=== PATIENT | male | born 1955 | race Two or more races ===

== ENCOUNTER 2016-10-23 20:29 | Inpatient (IN) | payer MEDICARE, OTHER ==
[~2016-10-23] VITALS: Ht 175.3 cm; Wt 68.5 kg
[~2016-10-23 20:29] MED LIST: Bisacodyl RC; CARB1TAB21 PO; DONE10TA44 PO; FLUD0.1T PO; HYDR-3326 PO; MEMA10TA PO; RIVA10TA PO; Sennosides PO
--- NOTE | 2016-10-23 20:32 | NUR ---
PT BIBRA FROM HOME TO ER BED 09. PER REPORT, PT INCREASING WEAKNESS X 3 DAYS. ALSO NOTED TO BE MORE LETHARGIC, GOWNED AND PLACED ON MONITOR. STABLE VITALS. FEVER CONTRACTS MANAGER. PER FAMILY, PT USUALLY CAN AMBULATE. AWAITING MD EDWARDS.
--- NOTE | 2016-10-23 20:48 | NUR ---
DR RAWLS AT BEDSIDE FOR EVAL.
--- NOTE | 2016-10-23 20:57 | NUR ---
TIRE WORKER AT BEDSIDE FOR BLOOD DRAW.
--- NOTE | 2016-10-23 21:07 | NUR ---
RADIOLOGY AT BEDSIDE FOR CHEST XRAY.
[2016-10-23 21:08] LABS: BASOPHILS # (AUTO) 0.1 /CMM (0.0-0.2); BASOPHILS % (AUTO) 1.1 % (0.0-2.0); EOSINOPHILS # (AUTO) 0.2 /CMM (0.0-0.7); EOSINOPHILS % (AUTO) 2.1 % (0.0-6.0); HEMATOCRIT 45 % (39-51); HEMOGLOBIN 14.3 g/dL (13.5-17.5); LYMPHOCYTES # (AUTO) 0.4 /CMM (0.8-4.8); LYMPHOCYTES % (AUTO) 5.8 % (20.0-44.0); MEAN CORPUSCULAR HEMOGLOBIN 29 PG (26.0-33.0); MEAN CORPUSCULAR HGB CONC 32 g/dl (31.0-36.0); MEAN CORPUSCULAR VOLUME 89 fL (80-96); MONOCYTES # (AUTO) 0.3 /CMM (0.1-1.30); MONOCYTES % (AUTO) 3.8 % (2.0-12.0); NEUTROPHILS # (AUTO) 6.7 /CMM (1.8-8.9); NEUTROPHILS % (AUTO) 87.2 % (43.0-81.0); PLATELET COUNT (AUTO) 193 /CMM (150-450); RDW COEFFICIENT OF VARIATION 14.1 (11.5-15.0); RED BLOOD CELL COUNT(AUTO) 5.02 MIL/uL (4.5-6.0); WHITE BLOOD COUNT (AUTO) 7.7 K/uL (4.3-11.0)
--- NOTE | 2016-10-23 21:15 | NUR ---
PT TO RADIOLOGY FOR HEAD CT SCAN VIA [facility].
[2016-10-23 21:16] LABS: CALCIUM, SERUM 8.8 mg/dL (8.5-10.1); CARBON DIOXIDE 28 mmol/L (21-32); CHLORIDE 105 mmol/L (98-107); GFR 76 mL/min (>60); GLUCOSE 170 mg/dL (74-106); POTASSIUM 3.5 mmol/L (3.5-5.1); SODIUM SERUM 139 mmol/L (136-145); UREA NITROGEN, BLOOD 17 mg/dL (7-18)
[2016-10-23 21:17] LABS: SERUM AMMONIA 26 umol/L (11-32)
[2016-10-23 21:21] LABS: ALANINE AMINOTRANSFERASE 9 U/L (12-78); ALBUMIN 3.3 g/dL (3.4-5.0); ALKALINE PHOSPHATASE 83 U/L (46-116); ASPARTATE AMINOTRANSFERASE 11 U/L (15-37); BILIRUBIN,DIRECT 0.1 mg/dL (0.0-0.2); BILIRUBIN,TOTAL 0.6 mg/dL (0.2-1.0)
[2016-10-23 21:23] LABS: TROPONIN I < 0.017 ng/mL (0.00-0.056)
[2016-10-23 21:24] LABS: INR 1.02 (0.87-1.13); PROTHROMBIN TIME 10.6 SECS (9.5-12.7)
[2016-10-23 21:30] LABS: APPEARANCE,URINE Clear (CLEAR); BILIRUBIN,URINE Negative (NEGATIVE); BLOOD, URINE Small Ery/uL (NEGATIVE); COLOR,URINE Yellow (YELLOW); KETONES,URINE Trace (NEGATIVE); LEUKOCYTE ESTERASE ,URINE Negative (NEGATIVE); NITRITE, URINE Negative (NEGATIVE); PH,URINE 6.5 (5.0-8.0); PROTEIN,URINE 30 mg/dl (NEGATIVE); UGLUCOSE Negative (NEGATIVE); UROBILINOGEN,URINE 0.2 EU/dL (0.2)
[2016-10-23] MEDS ORDERED: IV NS 0.9% 1,000 ML BAG IV ONE (21:30)
[2016-10-23] MEDS ORDERED: IV SET PRIMARY 1 EA INFUS.SET MC ONE (21:30)
[2016-10-23] MEDS ORDERED: IV NS 0.9% 1,000 ML ONE (21:30)
[2016-10-23] MEDS ORDERED: ACETAMINOPHEN ES 500 MG TABLET PO ONE (21:30)
[2016-10-23] MEDS ORDERED: ACETAMINOPHEN ES 500 MG TABLET ONE (21:30)
[2016-10-23 21:58] LABS: ADD URINE CULTURE NO; BACTERIA,URINE Rare /HPF (None Seen); SQUAMOUS EPITHELIAL CELL,UR Few /HPF (None Seen); URINE AMORPHOUS URATE Few /HPF (None Seen); WBC,URINE 0-2 /HPF (0-3)
--- NOTE | 2016-10-23 22:32 | NUR ---
RN NOTE RECEIVED REPORT FROM [facility] FOR CONTINUITY OF CARE. AWAITING PT ARRIVAL TO UNIT.
--- NOTE | 2016-10-23 22:32 | NUR ---
REPORT GIVEN TO YEIMY. PT AWAITING TRANSFER TO FLOOR.
[2016-10-23 22:50] VITALS: BP 133/75
--- NOTE | 2016-10-23 22:50 | NUR ---
RN INITIAL NOTE RECEIVED PT IN NO ACUTE DISTRESS IN BED. PT IS A/O X 1 AND IS ARMEANIAN SPEAKING. PT HAS AT BEDSIDE TO INTERPRET. PT IS ON RA AND TOLERATING WELL WITH O2 SAT @ 100%. PT IS NOT C/O ANY SOB, DIFFICULTY BREATHING OR PAIN AT THIS TIME. PT HAS LFA 18G THAT IS CLEAN DRY AND INTACT AND PATENT WITH SALINE LOCK. BED IN LOW LOCK POSITION WITH RIALS UP X 2. CALL LIGHT WITHIN REACH AND ALL SAFETY MEASURES ENSURED AND CARRIED OUT. WILL CONTINUE TO MONITOR PT.
[2016-10-24] VITALS: BP 138/79
[2016-10-24] MEDS ORDERED: MAGNESIUM HYDROXIDE 30 ML UDC PO PRN
[2016-10-24] MEDS ORDERED: BISACODYL SUPP (10 MG) 10 MG/SUPP.RECT SUPP.RECT RC PRN
[2016-10-24] MEDS ORDERED: ZOLPIDEM TARTRATE 5 MG TABLET PO PRN
[2016-10-24] MEDS ORDERED: Z GUARD REMEDY 2 OZ OINT TP PRN
[2016-10-24] MEDS ORDERED: MAG HYDROX/AL HYDROX/SIMETH 30 ML UDC PO PRN
[2016-10-24] MEDS ORDERED: ENOXAPARIN SODIUM 30 MG/0.3 ML DISP.SYRIN SQ SCH
[2016-10-24] MEDS ORDERED: SENNOSIDES 8.6 MG TABLET PO PRN
[2016-10-24] MEDS ORDERED: HYDROCODONE/APAP 5/325MG 1 EACH TABLET PO PRN ×2
[2016-10-24] MEDS ORDERED: ONDANSETRON HCL/PF 4 MG/2 ML VIAL IVP PRN
--- NOTE | 2016-10-24 | NUR ---
RN NOTE PT FAMILY REFUSED DVT PUMPS. TRIED TO EDUCATE FAMILY MEMBER, BUT STILL REFUSED. WILL NEED FURTHER TEACHING.
[2016-10-24] MEDS ORDERED: IV NS 0.9% 1,000 ML ONE (03:27)
[2016-10-24] MEDS ORDERED: IV SET PRIMARY PUMP SET 1 EA INFUS.SET MC ONE (03:27)
[2016-10-24] MEDS: IV NS 0.9% 1,000 ML IV PRN (03:44)
[2016-10-24 04:00] VITALS: BP_SYST 126; BP_SYST 138; BP_DIAS 77; BP_DIAS 79
--- NOTE | 2016-10-24 07:02 | NUR ---
RN CLOSING NOTE PT REMAINS IN NO ACUTE DISTRESS IN BED. PT DID NOT HAVE ANY SIGNIFICANT CHANGE IN CONDITION DURING SHIFT. WILL ENDORSE TO AM RN FOR CONTINUITY OF CARE.
[2016-10-24 07:13] LABS: BASOPHILS % (AUTO) 0.3 % (0.0-2.0); EOSINOPHILS # (AUTO) 0.2 /CMM (0.0-0.7); EOSINOPHILS % (AUTO) 2.2 % (0.0-6.0); HEMATOCRIT 42 % (39-51); HEMOGLOBIN 13.9 g/dL (13.5-17.5); LYMPHOCYTES # (AUTO) 0.9 /CMM (0.8-4.8); LYMPHOCYTES % (AUTO) 10.9 % (20.0-44.0); MEAN CORPUSCULAR HEMOGLOBIN 30 PG (26.0-33.0); MEAN CORPUSCULAR HGB CONC 33 g/dl (31.0-36.0); MEAN CORPUSCULAR VOLUME 90 fL (80-96); MONOCYTES # (AUTO) 0.4 /CMM (0.1-1.30); MONOCYTES % (AUTO) 4.5 % (2.0-12.0); NEUTROPHILS # (AUTO) 6.5 /CMM (1.8-8.9); NEUTROPHILS % (AUTO) 82.1 % (43.0-81.0); PLATELET COUNT (AUTO) 171 /CMM (150-450); RDW COEFFICIENT OF VARIATION 14.9 (11.5-15.0); WHITE BLOOD COUNT (AUTO) 7.9 K/uL (4.3-11.0)
--- NOTE | 2016-10-24 07:15 | NUR ---
NEON SIGN WORKER INITIAL NOTES RECEIVED REPORT AND PT FROM PM NURSE, PT RESTING IN BED, NO ACUTE DISTRESS OR SOB AT THIS TIME, ON RA SAT ABOVE 97%, A&O X1 CONFUSED, ON TELE MON SR 81, LT FA 18 G IV RUNNING NS @ 75 ML/HR, NO INFILTRATION NOTED, ALL NEEDS MET, ALL SAFETY MEASURES INITIATED, SIDE RAILS X2, BED LOW AND LOCKED,CALL LIGHT WITHIN REACH, WILL CONTINUE TO MONITOR.
[2016-10-24] MEDS: PANTOPRAZOLE 40 MG TABLET.DR PO SCH (07:30)
[2016-10-24 07:34] LABS: CALCIUM, SERUM 8.5 mg/dL (8.5-10.1); CREATININE 0.9 mg/dL (0.6-1.3); MAGNESIUM 1.7 mg/dL (1.8-2.4); PHOSPHORUS 2.6 mg/dL (2.5-4.9); POTASSIUM 4.5 mmol/L (3.5-5.1)
[2016-10-24 08:00] VITALS: BP 147/98
[2016-10-24] MEDS: ENOXAPARIN SODIUM 40 MG/0.4 ML DISP.SYRIN SQ SCH (09:00)
[2016-10-24] MEDS ORDERED: MEMANTINE HCL 5 MG TABLET PO SCH (09:00)
[2016-10-24] MEDS: CARBIDOPA/LEVODOPA 25/100 MG 1 UDTAB PO SCH ×4 (09:57→21:31)
[2016-10-24] MEDS: ESCITALOPRAM OXALATE (10 MG) 10 MG TABLET PO SCH (09:58)
[2016-10-24] MEDS: FLUDROCORTISONE 0.1 MG TABLET PO SCH (09:58)
[2016-10-24] MEDS: MEMANTINE HCL 5 MG TABLET PO SCH ×2 (09:58→16:06)
[2016-10-24] MEDS: ACETAMINOPHEN 325 MG TABLET PO PRN ×3 (10:04→21:30)
[2016-10-24 12:00] VITALS: BP 107/71
[2016-10-24] MEDS ORDERED: SECONDARY IV SET 1 EA INFUS.SET MC ONE (12:15)
[2016-10-24] MEDS: Magnesium 1GM/D5W 100ML PREMIX 100 ML IV SCH ×2 (12:25→13:29)
--- NOTE | 2016-10-24 13:04 | NUR ---
FIRE EQUIPMENT INSPECTOR HELPER NOTES PT ON RA SAT AT 90%, PLACED ON 4L NC SAT AT 95%
--- NOTE | 2016-10-24 15:00 | NUR ---
RN MS NOTES PTS FAMILY STATES PT IS VERY SLEEPY AND HARD TO WAKE, SPOKE WITH DR TORRES AND STATED PT URI AND WILL CONTINUE TO MONITOR IF STILL NO CHANGES TOMORROW THEN WILL PUT NEW ORDERS,PTS FAMILY AWARE, VS STABLE.
[2016-10-24 16:00] VITALS: BP 122/69
[2016-10-24] MEDS ORDERED: RIVAROXABAN 10 MG TABLET PO SCH (17:00)
--- NOTE | 2016-10-24 18:53 | NUR ---
RN MS ENDING NOTES PT STABLE, ALL DUE MEDS GIVEN, ALL NEEDS MET, WILL ENDORSE TO PM NURSE.
[2016-10-24 20:00] VITALS: BP 144/77
[2016-10-24] MEDS: DONEPEZIL 5 MG TABLET PO SCH (21:30)
[2016-10-24] MEDS: TAMSULOSIN 0.4 MG CAP.SR.24H PO SCH (21:31)
[2016-10-25 04:00] VITALS: BP 105/69
--- NOTE | 2016-10-25 04:00 | NUR ---
RN NOTE PT HAS TEMP OF 101.2 AND COOLING MEASURES INITIATED. TYLENOL GIVEN. WILL REASSESS.
--- NOTE | 2016-10-25 04:30 | NUR ---
RN NOTE REASSESSED TEMP. TEMP IS 102.7 PER ORAL. CONTACTED AVTAR HYDROMETER CALIBRATOR AND NO NEW ORDERS. CONTINUE WITH COOLING MEASURES AND REASSESS IN 2-3 HOURS.
[2016-10-25] MEDS: ACETAMINOPHEN 325 MG TABLET PO PRN ×3 (05:02→22:06)
--- NOTE | 2016-10-25 06:30 | NUR ---
RN NOTE RETOOK TEMP. TEMP IS 99.1.
--- NOTE | 2016-10-25 06:40 | NUR ---
RN CLOSING NOTE PT REMAINS IN NO ACUTE DISTRESS IN BED. PT DID NOT HAVE ANY SIGNIFICANT CHANGE IN CONDITION DURING SHIFT. PT TEMP INCREASED TO 102.7. COOLING MEASURES INITIATED AND TEMP DECREASED TO 99.1. WILL ENDORSE TO AM RN FOR CONTINUITY OF CARE.
[2016-10-25 07:11] LABS: CREATININE 0.9 mg/dL (0.6-1.3); MAGNESIUM 1.8 mg/dL (1.8-2.4); POTASSIUM 3.9 mmol/L (3.5-5.1)
[2016-10-25 07:15] LABS: BASOPHILS % (AUTO) 0.3 % (0.0-2.0); EOSINOPHILS # (AUTO) 0.1 /CMM (0.0-0.7); EOSINOPHILS % (AUTO) 1.9 % (0.0-6.0); HEMATOCRIT 40 % (39-51); HEMOGLOBIN 13.1 g/dL (13.5-17.5); LYMPHOCYTES # (AUTO) 0.7 /CMM (0.8-4.8); LYMPHOCYTES % (AUTO) 10.9 % (20.0-44.0); MEAN CORPUSCULAR HEMOGLOBIN 29 PG (26.0-33.0); MEAN CORPUSCULAR HGB CONC 33 g/dl (31.0-36.0); MEAN CORPUSCULAR VOLUME 89 fL (80-96); MONOCYTES # (AUTO) 0.2 /CMM (0.1-1.30); MONOCYTES % (AUTO) 3.2 % (2.0-12.0); NEUTROPHILS # (AUTO) 5.2 /CMM (1.8-8.9); NEUTROPHILS % (AUTO) 83.7 % (43.0-81.0); PLATELET COUNT (AUTO) 140 /CMM (150-450); RDW COEFFICIENT OF VARIATION 14.8 (11.5-15.0); RED BLOOD CELL COUNT(AUTO) 4.48 MIL/uL (4.5-6.0); WHITE BLOOD COUNT (AUTO) 6.2 K/uL (4.3-11.0)
--- NOTE | 2016-10-25 07:30 | NUR ---
initial note patient resting in bed. oriented to name only. breathing wnl on room air. at bedside. lfa iv patent with iv fluids infusing. temp 98.7 at this time. discussed plan of care. call light in reach.
[2016-10-25 08:00] VITALS: BP 103/58
[2016-10-25] MEDS: PANTOPRAZOLE 40 MG TABLET.DR PO SCH (08:13)
[2016-10-25] MEDS: MEMANTINE HCL 5 MG TABLET PO SCH ×2 (08:14→15:53)
[2016-10-25] MEDS: FLUDROCORTISONE 0.1 MG TABLET PO SCH (08:14)
[2016-10-25] MEDS: ESCITALOPRAM OXALATE (10 MG) 10 MG TABLET PO SCH (08:14)
[2016-10-25] MEDS: ENOXAPARIN SODIUM 40 MG/0.4 ML DISP.SYRIN SQ SCH (08:17)
[2016-10-25] MEDS: CARBIDOPA/LEVODOPA 25/100 MG 1 UDTAB PO SCH ×3 (08:17→22:04)
[2016-10-25] MEDS: IV NS 0.9% 1,000 ML IV PRN (10:37)
[2016-10-25 12:00] VITALS: BP 115/60
[2016-10-25 16:00] VITALS: BP 125/67
--- NOTE | 2016-10-25 16:30 | NUR ---
DR. TORRES AND DR. NIEVES AWARE OF TEMPERATURE 101.0 UNRELIEVED BY TYLENOL AND COOLING MEASURES.
[2016-10-25] MEDS ORDERED: SECONDARY IV SET 1 EA INFUS.SET MC ONE (19:36)
[2016-10-25] MEDS: CEFTRIAXONE 1 G in IV D5W 50 ML IV SCH (19:42)
[2016-10-25 20:00] VITALS: BP 124/69
--- NOTE | 2016-10-25 20:00 | NUR ---
RN INITIAL NOTE; PT ON THE BED RESTING WITHOUT ANY DISTRESS , FAMILY AT THE BED SITE. A/O X 1 , CONFUSE. BREATHING EVEN AND UNLABORED ON 4 LPM VIA NC , PERIPHERAL IV ON LFA 18 G INTACT AND PATENT WITH CONTINUE NS @ 75 ML/HR. DENIED ANY PAIN AT THIS TIME . INCONTINENT TO BOWEL/BLADDER, BED IN THE LOWEST/LOCKED POSITION , SAFETY MEASURES APPLIED . WILL CONTINUE OT MONITOR .
[2016-10-25] MEDS: AZITHROMYCIN 500 MG in IV D5W 250 ML IV SCH (20:31)
[2016-10-25] MEDS: DONEPEZIL 5 MG TABLET PO SCH (22:04)
[2016-10-25] MEDS: TAMSULOSIN 0.4 MG CAP.SR.24H PO SCH (22:04)
[2016-10-26 04:00] VITALS: BP 131/70
[2016-10-26] MEDS: IV NS 0.9% 1,000 ML IV PRN ×2 (04:05→17:49)
[2016-10-26 06:51] LABS: BASOPHILS % (AUTO) 0.6 % (0.0-2.0); EOSINOPHILS # (AUTO) 0.2 /CMM (0.0-0.7); EOSINOPHILS % (AUTO) 3.2 % (0.0-6.0); HEMATOCRIT 41 % (39-51); HEMOGLOBIN 13.2 g/dL (13.5-17.5); LYMPHOCYTES # (AUTO) 0.9 /CMM (0.8-4.8); LYMPHOCYTES % (AUTO) 15.9 % (20.0-44.0); MEAN CORPUSCULAR HEMOGLOBIN 29 PG (26.0-33.0); MEAN CORPUSCULAR HGB CONC 33 g/dl (31.0-36.0); MEAN CORPUSCULAR VOLUME 89 fL (80-96); MONOCYTES # (AUTO) 0.2 /CMM (0.1-1.30); MONOCYTES % (AUTO) 4.3 % (2.0-12.0); NEUTROPHILS # (AUTO) 4.2 /CMM (1.8-8.9); PLATELET COUNT (AUTO) 147 /CMM (150-450); RDW COEFFICIENT OF VARIATION 15.1 (11.5-15.0); RED BLOOD CELL COUNT(AUTO) 4.55 MIL/uL (4.5-6.0); WHITE BLOOD COUNT (AUTO) 5.5 K/uL (4.3-11.0)
--- NOTE | 2016-10-26 07:00 | NUR ---
RN NOTE; RECEIVED PT ON BED, A/Ox1 ,INDONESIAN SPEAKING ,RESPITTION EVEN AND UNLABORED, NO SOB NOTED, ON O2 4-5L N/C , SUPPORTIVE FAMILY AT THE BEDSIDE, IV ON LFA 18 G INTACT AND PATENT WITH CONTINUE NS @ 75 ML/HR. INCONTINENT TO BOWEL/BLADDER, BED IN THE LOWEST AND LOCKED POSITION , SAFETY MEASURES APPLIED . WILL CONTINUE OT MONITOR PT CLSOELY AND NOTIFY MD FOR ANY SIGNIFICANT CHANGES
--- NOTE | 2016-10-26 07:05 | NUR ---
RN EOS NOTE; PT REMAINED STABLE DURING THE SHIFT, NO ANY DISTRESS NOTED. IV SITE , HD CATH INTACT . KEPT CLEAN AND DRY .ALL NEEDS ATTENDED PROMPTLY. CALL LIGHT WITHIN REACH. ENDORSED TO NEXT SHIFT RN FOR CONTINUITY OF CARE. Addendum: 10/26/16 at 0707 by AILYN KENT RN WRONG PT DOCUMENTATION
--- NOTE | 2016-10-26 07:07 | NUR ---
RN EOS NOTE; PT REMAINED STABLE DURING THE SHIFT, NO ANY DISTRESS NOTED. IV SITE INTACT AND PATENT. IV ATB TOLERATED WELL . KEPT CLEAN AND DRY .ALL NEEDS ATTENDED PROMPTLY. CALL LIGHT WITHIN REACH. ENDORSED TO NEXT SHIFT RN FOR CONTINUITY OF CARE.
[2016-10-26 07:24] LABS: CALCIUM, SERUM 8.2 mg/dL (8.5-10.1); CREATININE 0.8 mg/dL (0.6-1.3); POTASSIUM 3.6 mmol/L (3.5-5.1)
[2016-10-26 08:00] VITALS: BP 144/81
[2016-10-26] MEDS: DOCUSATE SODIUM 100 MG CAPSULE PO SCH ×2 (08:30→16:19)
[2016-10-26] MEDS: PANTOPRAZOLE 40 MG TABLET.DR PO SCH (08:31)
[2016-10-26] MEDS: MEMANTINE HCL 5 MG TABLET PO SCH ×2 (08:32→16:20)
[2016-10-26] MEDS: FLUDROCORTISONE 0.1 MG TABLET PO SCH (08:32)
[2016-10-26] MEDS: ENOXAPARIN SODIUM 40 MG/0.4 ML DISP.SYRIN SQ SCH (08:32)
[2016-10-26] MEDS: ESCITALOPRAM OXALATE (10 MG) 10 MG TABLET PO SCH (08:34)
[2016-10-26] MEDS: CARBIDOPA/LEVODOPA 25/100 MG 1 UDTAB PO SCH ×3 (10:22→21:21)
--- NOTE | 2016-10-26 15:10 | NUR ---
RN NOTES PT IS MORE ALERT AT THIS TIME, PT'S WANTS PT CONSULT TO BE REORDER.
[2016-10-26 16:00] VITALS: BP 113/71
[2016-10-26] MEDS: LACTOBACILLUS RHAMNOSUS GG 1 EACH CAP.SPRINK PO SCH (16:19)
[2016-10-26] MEDS: CEFTRIAXONE 1 G in IV D5W 50 ML IV SCH (18:00)
--- NOTE | 2016-10-26 18:36 | NUR ---
RN NOTES PT REMANS THE SAME, FAMILY AT THE BEDSIDE, NS AT 75CC/HR RUNNING VIA LFA IV SITE, NO SIGNIFICANT CHANGES NOTED ON THIS SHIFT .
[2016-10-26] MEDS: AZITHROMYCIN 500 MG in IV D5W 250 ML IV SCH (18:46)
--- NOTE | 2016-10-26 19:45 | NUR ---
RN INITIAL NOTE RECEIVED PT IN NO ACUTE DISTRESS IN BED. PT IS A/O X 1 AND IS ARMEANIAN SPEAKING. PT HAS AT BEDSIDE TO INTERPRET. PT IS ON RA AND TOLERATING WELL WITH O2 SAT @ 100%. PT IS NOT C/O ANY SOB, DIFFICULTY BREATHING OR PAIN AT THIS TIME. PT HAS LFA 18G THAT IS CLEAN DRY AND INTACT AND PATENT WITH NS @ 75ML/HR. BED IN LOW LOCK POSITION WITH RIALS UP X 2. CALL LIGHT WITHIN REACH AND ALL SAFETY MEASURES ENSURED AND CARRIED OUT. WILL CONTINUE TO MONITOR PT.
[2016-10-26 20:00] VITALS: BP 133/71
[2016-10-26] MEDS: DONEPEZIL 5 MG TABLET PO SCH (21:21)
[2016-10-26] MEDS: TAMSULOSIN 0.4 MG CAP.SR.24H PO SCH (21:21)
[2016-10-27 04:00] VITALS: BP 145/84
--- NOTE | 2016-10-27 04:34 | NUR ---
RN NOTE GAVE REPORT TO MARINA ARCINIEGA FOR CONTINUITY OF CARE. PT REMAINS IN NO ACUTE DISTRESS IN BED.
--- NOTE | 2016-10-27 04:40 | NUR ---
RN NOTES RECEIVED ENDORSEMENT FROM SUZE MCWILLIAMS. PATIENT IN BED SLEEPING COMFORTABLY, ON 4LPM OF O2 VIA NC, RESPIRATION IS EVEN AND UNLABORED WITH NO DISTRESS. FAMILY AT BEDSIDE. SAFETY AND COMFORT ENSURED. CALL LIGHT IN REACH.
--- NOTE | 2016-10-27 06:50 | NUR ---
RN CLOSING NOTES PATIENT IN BED, RESTING COMFORTABLY, EASILY AROUSABLE WITH VERBAL AND TACTILE STIMULI. NO DISTRESS. IVF INFUSING WELL ORDERED. PATIENT'S NEEDS ANTICIPATED AND MET. SAFETY AND COMFORT ENSURED. FAMILY AT BEDSIDE. CALL LIGHT IN REACH. WILL ENDORSE ACCORDINGLY FOR CONTINUITY OF CARE.
[2016-10-27] MEDS: LACTOBACILLUS RHAMNOSUS GG 1 EACH CAP.SPRINK PO SCH ×2 (09:00→16:12)
[2016-10-27] MEDS: FLUDROCORTISONE 0.1 MG TABLET PO SCH (09:00)
[2016-10-27] MEDS: ENOXAPARIN SODIUM 40 MG/0.4 ML DISP.SYRIN SQ SCH (09:00)
[2016-10-27] MEDS: DOCUSATE SODIUM 100 MG CAPSULE PO SCH ×2 (09:00→16:12)
[2016-10-27] MEDS: MEMANTINE HCL 5 MG TABLET PO SCH ×2 (09:00→16:12)
[2016-10-27] MEDS: ESCITALOPRAM OXALATE (10 MG) 10 MG TABLET PO SCH (10:05)
[2016-10-27] MEDS: PANTOPRAZOLE 40 MG TABLET.DR PO SCH (10:06)
[2016-10-27] MEDS: CARBIDOPA/LEVODOPA 25/100 MG 1 UDTAB PO SCH ×2 (10:18→16:12)
--- NOTE | 2016-10-27 18:05 | NUR ---
PATIENT IS ALERT TOP NAME.PICKED UP TO BE DISCHARGED TO [facility].PATIENT NOTED IN STABLE CONDITION.
[2016-10-27] MEDS ORDERED: AZITHROMYCIN 250 MG TABLET PO SCH (19:00)
== END 2016-10-27 18:26 | DRG 865 ==
LOC: ER 20:31 → TELE1 23:19 → MEDSG1 10-24 15:46
PROVIDERS: ADMIT Nurse Practitioner Acute Care; ATTEND Nurse Practitioner Acute Care
DX: B34.9 Viral infection, unspecified (principal); G92 Toxic encephalopathy; E27.40 Unspecified adrenocortical insufficiency; G30.9 Alzheimer's disease, unspecified; G20 Parkinson's disease; F02.80 Dementia in other diseases classified elsewhere, unspecified severity, without behavioral disturbance, psychotic disturbance, mood disturbance, and anxiety; F32.9 Major depressive disorder, single episode, unspecified; N40.0 Benign prostatic hyperplasia without lower urinary tract symptoms; Z87.442 Personal history of urinary calculi; Z91.81 History of falling; Z96.642 Presence of left artificial hip joint; E11.9 Type 2 diabetes mellitus without complications
CPT/HCPCS: 36415; 70450-TC; 71010-TC; 80048-TC; 80061-TC; 80076-TC; 81000-TC; 82140-TC; 82533; 82962-TC; 83605-TC; 83735-TC; 84100-TC; 84443-TC; 84484-TC; 85025-TC; 85730-TC; 87040-TC; 87086-TC; 87400; 97001-TC; A4349; A4606; J0456; J0696; J1650; J3475; J7030; J7060; Z7610

== ENCOUNTER 2018-03-22 21:59 | Inpatient (IN) | payer MEDICARE, OTHER ==
[~2018-03-22] VITALS: Ht 172.7 cm; Wt 59.4 kg
[~2018-03-22 21:59] MED LIST changes: -HYDR-3326 PO; +HYDR-3974 PO
--- NOTE | 2018-03-22 22:25 | NUR ---
PT TO ER BED 4. BIBRA FR HOME PER PT INTERMITTENT FEVERS, NOT EATING.NO IMPROVEMENT ON PT STATUS, ON HOSP[facility] FOR [facility]. PT IS NON VERBAL, NORMAL BASELINE PER . PT PLACED IN GOWN AND ON RADIO PERFORMER. VSS/RESP EVEN UNLABORED/NAD NOTED/SKIN WARM AND DRY/DENIES N-V-D. AWAITABHIJIT EDWARDS. ORAL TEMP 99.1 PER [place].
--- NOTE | 2018-03-22 22:55 | NUR ---
18G IV TO L FA X 1 ATTEMPT USING ASEPTIC TECH, BLOOD CULTURES X 2 AND BLOOD HANDED OVER TO THE LAB AT BEDSIDE. IV FLUSHES EASILY WITH NS, NO S/S INFILTRATION NOTED AT THIS TIME.
[2018-03-22] MEDS ORDERED: IV NS 0.9% 1,000 ML BAG IV ONE (23:00)
--- NOTE | 2018-03-22 23:01 | NUR ---
XRAY AT BEDSIDE.
[2018-03-22 23:03] LABS: BASOPHILS % (AUTO) 0.8 % (0.0-2.0); EOSINOPHILS % (AUTO) 3.8 % (0.0-6.0); HEMATOCRIT 40 % (39-51); HEMOGLOBIN 13.2 g/dL (13.5-17.5); LYMPHOCYTES # (AUTO) 1.1 /CMM (0.8-4.8); LYMPHOCYTES % (AUTO) 18.6 % (20.0-44.0); MEAN CORPUSCULAR HGB CONC 33 g/dl (31.0-36.0); MEAN CORPUSCULAR VOLUME 88 fL (80-96); MONOCYTES # (AUTO) 0.2 /CMM (0.1-1.30); MONOCYTES % (AUTO) 3.7 % (2.0-12.0); NEUTROPHILS # (AUTO) 4.3 /CMM (1.8-8.9); NEUTROPHILS % (AUTO) 73.1 % (43.0-81.0); PLATELET COUNT (AUTO) 235 /CMM (150-450); RDW COEFFICIENT OF VARIATION 14.5 (11.5-15.0); RED BLOOD CELL COUNT(AUTO) 4.51 MIL/uL (4.5-6.0); WHITE BLOOD COUNT (AUTO) 5.8 K/uL (4.3-11.0)
--- NOTE | 2018-03-22 23:17 | NUR ---
15FR in and out dixon catheter inserted per sterile protocal. Immediate output 100ML of urine, color straw, clarity clear. Urine specimen obtained and sent to the lab.
[2018-03-22 23:25] LABS: CALCIUM, SERUM 8.9 mg/dL (8.5-10.1); CREATININE 0.9 mg/dL (0.6-1.3); POTASSIUM 3.5 mmol/L (3.5-5.1)
[2018-03-22 23:30] LABS: ALBUMIN 3.2 g/dL (3.4-5.0); BILIRUBIN,DIRECT 0.1 mg/dL (0.0-0.2); BILIRUBIN,TOTAL 0.6 mg/dL (0.2-1.0); TOTAL PROTEIN, SERUM 7.4 g/dL (6.4-8.2)
[2018-03-22 23:58] LABS: APPEARANCE,URINE CLEAR (CLEAR); BILIRUBIN,URINE 1+ (NEGATIVE); BLOOD, URINE 3+ Ery/uL (NEGATIVE); COLOR,URINE YELLOW (YELLOW); KETONES,URINE 2+ (NEGATIVE); LEUKOCYTE ESTERASE ,URINE NEGATIVE (NEGATIVE); NITRITE, URINE NEGATIVE (NEGATIVE); PROTEIN,URINE TRACE mg/dl (NEGATIVE); UGLUCOSE NEGATIVE (NEGATIVE); UROBILINOGEN,URINE 0.2 EU/dL (0.2)
[2018-03-23 00:08] LABS: BACTERIA,URINE None seen /HPF (None Seen); MUCUS,URINE Rare /LPF (None Seen); SQUAMOUS EPITHELIAL CELL,UR Few /HPF (None Seen); WBC,URINE 0-2 /HPF (0-3)
--- NOTE | 2018-03-23 01:03 | NUR ---
HIRO Browning NP paged.
--- NOTE | 2018-03-23 01:30 | NUR ---
REPORT GIVEN TO SUZE DENNISON FOR MARLEN.
--- NOTE | 2018-03-23 01:39 | NUR ---
PT TRANSPORTED TO [facility].2 VIA STRETCHER WITH EMT, VSS.
--- NOTE | 2018-03-23 01:40 | NUR ---
MS/RN NOTES RECEIVED PT. FROM ER VIA [facility]. PT. IS NON-VERBAL RESPONDS TO TACTILE STIMULI. BREATHING EVEN AND UNLABORED ON ROOM AIR. NO SOB, RESPIRATORY DISTRESS OR S/S OF PAIN NOTED AT THIS TIME. PT. WITH LEFT FOREARM 18 GAUGE IV SALINE LOCK PRESENT, PATENT AND INTACT. PT. WITH FAMILY MEMBERS PRESENT AT BEDSIDE. BED LOCKED AND IN LOWEST POSITION, SIDE RAILS UP X3, BED ALARM ON, CALL LIGHT WITHIN REACH, WILL CONTINUE TO MONITOR.
[2018-03-23] MEDS ORDERED: ONDANSETRON HCL/PF 4 MG/2 ML VIAL IVP PRN (02:00)
[2018-03-23] MEDS ORDERED: HYDROCODONE/APAP 5/325MG 1 EACH TABLET PO PRN (02:00)
[2018-03-23] MEDS ORDERED: MAG HYDROX/AL HYDROX/SIMETH 30 ML UDC PO PRN (02:00)
[2018-03-23] MEDS ORDERED: Z GUARD REMEDY 2 OZ OINT TP PRN (02:00)
[2018-03-23] MEDS ORDERED: MAGNESIUM HYDROXIDE 30 ML UDC PO PRN (02:00)
[2018-03-23 03:20] VITALS: BP 137/90
[2018-03-23] MEDS: IV D5/0.45 NACL 1,000 ML IV PRN (03:25)
--- NOTE | 2018-03-23 06:33 | NUR ---
MS/RN NOTES PT. IS LYING IN BED RESTING. PT. IS NON-VERBAL RESPONDS TO TACTILE STIMULI. BREATHING EVEN AND UNLABORED ON ROOM AIR. NO SOB, RESPIRATORY DISTRESS OR S/S OF PAIN NOTED AT THIS TIME AND THROUGHOUT SHIFT. PT. WITH LEFT FOREARM 18 GAUGE PERIPHERAL IV PRESENT, PATENT AND INTACT ADMINISTERING TO PT. D5 1/2 NS @ 75 ML/HR. PT. PRESENT AT BEDSIDE. ALL PT. NEEDS MET. PT. OFFLOADED, TURNED AND REPOSITIONED Q2H AND NEEDED. BED LOCKED AND IN LOWEST POSITION, SIDE RAILS UP X3, BED ALARM ON, CALL LIGHT WITHIN REACH, WILL ENDORSE TO DAYSHIFT NURSE FOR CONTINUITY OF CARE.
[2018-03-23 07:19] LABS: CALCIUM, SERUM 8.5 mg/dL (8.5-10.1); CREATININE 0.7 mg/dL (0.6-1.3); POTASSIUM 3.5 mmol/L (3.5-5.1)
--- NOTE | 2018-03-23 07:20 | NUR ---
MS RN OPENING NOTE RECEIVED PATIENT IN BED. SLEEPING, AROUSED TO PHYSICAL STIMULI, WITH EYE OPENING ONLY, NON - VERBAL. UNABLE TO FOLLOW COMMANDS. PATIENT IS ON ROOM AIR TOLERATING WELL. IN NO APPARENT DISTRESS OR DISCOMFORT AT THIS TIME. RESPIRATIONS EVEN AND UNLABORED. DOES NOT APPEAR IN PAIN BASED ON FLACC SCALE. PATIENT WITH LEFT FOREARM IVC 18G WITH FLUIDS RUNNING AT 75ML/HR. INCONTINENT WITH DIAPER. IS AT BEDSIDE. PATIENT KEPT CLEAN AND COMFORTABLE. ALL NEEDS ATTENDED. BED IN LOW LOCKED POSITION, SIDE RAILS UP X2, CALL LIGHT WITHIN EASY REACH. WILL CONTINUE TO MONITOR.
[2018-03-23] MEDS ORDERED: TAMS0.4C34 PO (07:37)
[2018-03-23] MEDS ORDERED: ESCI10TA PO (07:37)
[2018-03-23 08:00] VITALS: BP 119/67
[2018-03-23 08:21] VITALS: BP 119/67
[2018-03-23] MEDS: DOCUSATE SODIUM 100 MG CAPSULE PO SCH ×2 (09:00→17:00)
[2018-03-23] MEDS: PANTOPRAZOLE 40 MG VIAL IV SCH (09:01)
[2018-03-23 16:00] VITALS: BP_SYST 101; BP_SYST 154; BP_DIAS 60; BP_DIAS 85
--- NOTE | 2018-03-23 16:00 | NUR ---
PATIENT'S BP IS 154/85, HR IS 59. PATIENT IS ASYMPTOMATIC BUT STATES THIS KIND OF BP IS UNUSUAL FOR THE PATIENT. DR MARAVILLA WAS PAGED REGARDING THIS MATTER. AWAITING FOR FURTHER ORDERS.
--- NOTE | 2018-03-23 18:00 | NUR ---
RECEIVED TELEPHONE ORDER FROM DR MARAVILLA FOR CLONIDINE 0.1MG TRANSDERMAL PATCH WEEKLY. ORDER READ BACK AND VERIFIED. WILL CONTINUE TO MONITOR.
--- NOTE | 2018-03-23 19:15 | NUR ---
MS RN CLOSING NOTE PATIENT IN BED. SLEEPING, AROUSED TO PHYSICAL STIMULI, WITH EYE OPENING ONLY, NON - VERBAL. UNABLE TO FOLLOW COMMANDS. PATIENT IS ON ROOM AIR TOLERATING WELL. IN NO APPARENT DISTRESS OR DISCOMFORT AT THIS TIME. RESPIRATIONS EVEN AND UNLABORED. DOES NOT APPEAR IN PAIN BASED ON FLACC SCALE. PATIENT WITH LEFT FOREARM IVC 18G WITH FLUIDS RUNNING AT 75ML/HR. INCONTINENT WITH DIAPER. FAMILY IS AT BEDSIDE. PATIENT KEPT CLEAN AND COMFORTABLE. ALL NEEDS ATTENDED. BED IN LOW LOCKED POSITION, SIDE RAILS UP X2, CALL LIGHT WITHIN EASY REACH. WILL ENDORSE TO PM NURSE FOR MARLEN.
--- NOTE | 2018-03-23 19:25 | NUR ---
MS/RN NOTES RECEIVED PT. LYING IN BED WITH EYES OPEN. PT. IS NON-VERBAL RESPONDS TO TACTILE STIMULI. BREATHING EVEN AND UNLABORED ON ROOM AIR. NO SOB, RESPIRATORY DISTRESS OR S/S OF PAIN NOTED AT THIS TIME. PT. REMAINS NPO AT THIS TIME. PT. WITH LEFT FOREARM 18 GAUGE PERIPHERAL IV PRESENT, PATENT AND INTACT ADMINISTERING TO PT. D5 1/2 NS @ 75 ML/HR. PT. PRESENT AT BEDSIDE. BED LOCKED AND IN LOWEST POSITION, SIDE RAILS UP X3, BED ALARM ON, CALL LIGHT WITHIN REACH, WILL CONTINUE TO MONITOR.
[2018-03-23 20:00] VITALS: BP 134/75
[2018-03-23] MEDS: CLONIDINE HCL 0.1MG/24H PTWK 1 EA PATCH TD SCH (21:19)
[2018-03-24] MEDS: IV D5/0.45 NACL 1,000 ML IV PRN (06:36)
--- NOTE | 2018-03-24 06:45 | NUR ---
MS/RN NOTES PT. IS LYING IN BED RESTING. BREATHING EVEN AND UNLABORED ON ROOM AIR. NO SOB, RESPIRATORY DISTRESS OR S/S OF PAIN NOTED AT THIS TIME. PT. REMAINS NPO AT THIS TIME. PT. WITH LEFT FOREARM 18 GAUGE PERIPHERAL IV PRESENT, PATENT AND INTACT ADMINISTERING TO PT. D5 1/2 NS @ 75 ML/HR. ALL PT. NEEDS MET. PT. OFFLOADED, TURNED AND REPOSITIONED Q2H AND NEEDED. BED LOCKED AND IN LOWEST POSITION, SIDE RAILS UP X3, BED ALARM ON, CALL LIGHT WITHIN REACH, WILL ENDORSE TO DAYSKSFT NURSE FOR CONTINUITY OF CARE.
--- NOTE | 2018-03-24 07:10 | NUR ---
MS RN OPENING NOTE RECEIVED PT IN BED, RESTING, BREATHING IS EVEN AND UNLABORED ON ROOM AIR. NO SIGNS OF ACUTE DISTRESS NOTED AT THIS TIME. SON IS AT THE BEDSIDE. L FA #18 G IV IS INFUSING D5 1/2 NS @ 75 ML/HR WITHOUT REDNESS OR SWELLING. SAFETY PRECAUTIONS MAINTAINED, ALL NEEDS ATTENDED TO. BED IS LOCKED AND IN LOWEST POSITION, SIDE RAILS UP X2, CALL LIGHT IS WITHIN REACH, BED ALARM IS ON. WILL CONTINUE TO MONITOR.
[2018-03-24 07:39] LABS: CALCIUM, SERUM 8.5 mg/dL (8.5-10.1); CREATININE 0.7 mg/dL (0.6-1.3); MAGNESIUM 1.5 mg/dL (1.8-2.4); PHOSPHORUS 2.4 mg/dL (2.5-4.9)
[2018-03-24 07:48] LABS: THYROID STIMULATING HORMONE 1.052 uIU/mL (0.358-3.74)
[2018-03-24 07:52] LABS: BASOPHILS % (AUTO) 0.1 % (0.0-2.0); EOSINOPHILS % (AUTO) 1.7 % (0.0-6.0); HEMATOCRIT 38 % (39-51); HEMOGLOBIN 12.7 g/dL (13.5-17.5); LYMPHOCYTES # (AUTO) 0.9 /CMM (0.8-4.8); LYMPHOCYTES % (AUTO) 11.4 % (20.0-44.0); MEAN CORPUSCULAR HGB CONC 34 g/dl (31.0-36.0); MEAN CORPUSCULAR VOLUME 88 fL (80-96); MONOCYTES # (AUTO) 0.2 /CMM (0.1-1.30); MONOCYTES % (AUTO) 2.8 % (2.0-12.0); PLATELET COUNT (AUTO) 230 /CMM (150-450); RDW COEFFICIENT OF VARIATION 13.6 (11.5-15.0); RED BLOOD CELL COUNT(AUTO) 4.29 MIL/uL (4.5-6.0); WHITE BLOOD COUNT (AUTO) 8.2 K/uL (4.3-11.0)
[2018-03-24 08:00] VITALS: BP 145/89
[2018-03-24] MEDS: DOCUSATE SODIUM 100 MG CAPSULE PO SCH ×2 (08:20→17:00)
[2018-03-24] MEDS: PANTOPRAZOLE 40 MG VIAL IV SCH (08:23)
[2018-03-24] MEDS: Magnesium 1GM/D5W 100ML PREMIX 100 ML IV SCH ×4 (10:01→14:05)
--- NOTE | 2018-03-24 10:48 | NUR ---
WOUND CARE CONSULT: PT PRESENTS WITH UNSTAGEABLE SACRAL ULCER WITH HYPERKERATOTIC TISSUE, AND BILATERAL LATERAL ANKLE SCARS, PRESENT ON ADMISSION. RECOMMENDATIONS MADE FOR WOUND CARE AND SKIN PROTECTION. DISCUSSED WITH NURSING STAFF. ÁNGEL ISOFLEX LOW AIRLOSS BED TO BE PLACED. RECOMMEND SURGICAL CONSULT. WILL SEE PRN. CESAR IN AGREEMENT WITH PLAN OF CARE. Addendum: 03/24/18 at 1050 by RENU GIORDANO WNDNU Amended: Links added.
[2018-03-24] MEDS: POTASSIUM PHOSPHATE MM 7.5 MMOL in IV NS 0.9% 100 ML IV SCH ×2 (11:25→14:24)
[2018-03-24] MEDS: HYDROGEL DRESSING 90 GM TUBE TP SCH (12:17)
[2018-03-24] MEDS: POTASSIUM CL. PREMIX PERIPHER. 50 ML IV SCH ×6 (12:17→18:14)
--- NOTE | 2018-03-24 15:30 | NUR ---
M/S RN - MD Wendy Lyles at bedside evaluating the patient. Md made aware that pt with elevated temp 101.9F, cooling measures provided. Md with order for blood culture x 2, u/a, and insert NGT for feeding and meds. Family at bedside aware of plan of care.
[2018-03-24 16:00] VITALS: BP 119/70
[2018-03-24] MEDS: JEVITY 1.2 CAL 1,000 ML BOTTLE GT PRN (16:37)
[2018-03-24] MEDS: ACETAMINOPHEN 325 MG TABLET PO PRN ×2 (16:37→23:09)
--- NOTE | 2018-03-24 16:37 | NUR ---
M/S RN - Notes Per david Mcmullen to use NGT for meds/feeding. Started Jevity 1.2 at 20 ml/hr slowly increase to reach goal of 40 ml/hr. Tylenol 650 mg via NGT given.
--- NOTE | 2018-03-24 18:33 | NUR ---
M/S RN - Closing Notes Patient lethargic, latest temp 99.1 F, still with cooling measures, no s/s of pain, not in any form of distress, NGT on the right nostril is patent, Jevity 1.2 at 20 ml/hr tolerating it well. Potassium, magnesium and phosphorus repleted. All skin protection and pressure ulcer prevention measures in place. declined sacral debridement. Fall and aspiration precautions maintained. Will continue with current medical management.
--- NOTE | 2018-03-24 19:30 | NUR ---
BLADDER SCANNER DONE, 46 ML RESIDUAL NOTED, FAMILY AT BEDSIDE, NO S/S OF URINARY RETENTION NOTED, IV SIDE INFILTRATED, STARTED NEW PERIPHERAL LINE ON R UPPER ARM # 22.
[2018-03-24 20:00] VITALS: BP 92/62
[2018-03-24] MEDS: PIPERACILLIN /TAZOBACTAM 3.375 G in IV D5W 50 ML IV SCH (20:20)
[2018-03-24 22:50] LABS: APPEARANCE,URINE CLOUDY (CLEAR); BILIRUBIN,URINE NEGATIVE (NEGATIVE); BLOOD, URINE 2+ Ery/uL (NEGATIVE); COLOR,URINE YELLOW (YELLOW); KETONES,URINE TRACE (NEGATIVE); LEUKOCYTE ESTERASE ,URINE NEGATIVE (NEGATIVE); NITRITE, URINE NEGATIVE (NEGATIVE); PH,URINE 5.5 (5.0-8.0); PROTEIN,URINE NEGATIVE (NEGATIVE); UGLUCOSE TRACE mg/dL (NEGATIVE)
[2018-03-24 22:59] LABS: BACTERIA,URINE Many /HPF (None Seen); SQUAMOUS EPITHELIAL CELL,UR Few /HPF (None Seen); URINE AMORPHOUS URATE Many /HPF (None Seen)
[2018-03-25] MEDS: PIPERACILLIN /TAZOBACTAM 3.375 G in IV D5W 50 ML IV SCH ×4 (01:47→19:53)
--- NOTE | 2018-03-25 02:54 | NUR ---
BLADDER SCANNER DONE , 51 ML RESIDUALS NOTED, FAMILY AT BEDSIDE AWARE.
[2018-03-25] MEDS: IV D5/0.45 NACL 1,000 ML IV PRN ×2 (03:42→14:44)
[2018-03-25 07:09] LABS: CALCIUM, SERUM 8.3 mg/dL (8.5-10.1); CREATININE 0.9 mg/dL (0.6-1.3); MAGNESIUM 2.4 mg/dL (1.8-2.4); POTASSIUM 3.7 mmol/L (3.5-5.1)
[2018-03-25 08:00] VITALS: BP 116/74
[2018-03-25] MEDS: DOCUSATE SODIUM 100 MG CAPSULE PO SCH (08:34)
[2018-03-25] MEDS: HYDROGEL DRESSING 90 GM TUBE TP SCH (08:34)
[2018-03-25] MEDS: PANTOPRAZOLE 40 MG VIAL IV SCH (08:34)
--- NOTE | 2018-03-25 12:29 | NUR ---
PATIENT NOT OPEN EYES UNRESPONSIVE NON VERBAL R00M AIR NO SOB NON LABORED BREATHING ABDOMEN SOFT NON TENDER NG TUBE FEEDING 30ML/HR TOLERATED SKIN IS DRY SACRUM DRESSING INTACT BLADDER SCAN DONE AT 1130;0ML FAMILY MEMBER AT BEDSIDE WILL CONTINUE MONITOR
[2018-03-25] MEDS: CARBIDOPA/LEVODOPA 25/100 MG 1 UDTAB PO SCH ×2 (13:42→17:12)
[2018-03-25] MEDS: DOCUSATE SODIUM LIQ 100 MG/10 ML UDC GT SCH ×2 (13:42→17:12)
[2018-03-25 16:00] VITALS: BP 101/57
--- NOTE | 2018-03-25 19:10 | NUR ---
MS RN OPENING NOTE RECEIVED PT IN BED, RESTING, BREATHING IS EVEN AND UNLABORED ON ROOM AIR. NO SIGNS OF ACUTE DISTRESS NOTED AT THIS TIME. IS AT THE BEDSIDE. L FA #18 G IV IS INFUSING D5 1/2 NS @ 75 ML/HR WITHOUT REDNESS OR SWELLING.NG TUBE IN PLACE JEVITY 1.2 AT 40 ML/HR AT R NARE. SAFETY PRECAUTIONS MAINTAINED,HOB ELEVATED. BED IS LOCKED AND IN LOWEST POSITION, SIDE RAILS UP X2, CALL LIGHT IS WITHIN REACH, BED ALARM IS ON. WILL CONTINUE TO MONITOR.
[2018-03-25 20:00] VITALS: BP 131/83
[2018-03-25 20:54] VITALS: BP 131/83
[2018-03-25] MEDS: TAMSULOSIN 0.4 MG CAP.SR.24H PO SCH (21:45)
[2018-03-25] MEDS: DONEPEZIL 5 MG TABLET PO SCH (21:46)
[2018-03-26] MEDS: PIPERACILLIN /TAZOBACTAM 3.375 G in IV D5W 50 ML IV SCH ×4 (01:30→20:54)
[2018-03-26] MEDS: JEVITY 1.2 CAL 1,000 ML BOTTLE GT PRN (03:47)
[2018-03-26 06:19] LABS: BASOPHILS % (AUTO) 0.3 % (0.0-2.0); EOSINOPHILS % (AUTO) 0.4 % (0.0-6.0); HEMATOCRIT 35 % (39-51); HEMOGLOBIN 11.6 g/dL (13.5-17.5); LYMPHOCYTES # (AUTO) 0.9 /CMM (0.8-4.8); LYMPHOCYTES % (AUTO) 9.4 % (20.0-44.0); MEAN CORPUSCULAR HGB CONC 33 g/dl (31.0-36.0); MEAN CORPUSCULAR VOLUME 91 fL (80-96); MONOCYTES # (AUTO) 0.2 /CMM (0.1-1.30); MONOCYTES % (AUTO) 2.3 % (2.0-12.0); NEUTROPHILS % (AUTO) 87.6 % (43.0-81.0); PLATELET COUNT (AUTO) 165 /CMM (150-450); RDW COEFFICIENT OF VARIATION 15.4 (11.5-15.0); RED BLOOD CELL COUNT(AUTO) 3.88 MIL/uL (4.5-6.0); WHITE BLOOD COUNT (AUTO) 9.2 K/uL (4.3-11.0)
[2018-03-26] MEDS: IV D5/0.45 NACL 1,000 ML IV PRN ×2 (06:19→20:56)
[2018-03-26 06:28] LABS: CALCIUM, SERUM 8.1 mg/dL (8.5-10.1); CREATININE 0.7 mg/dL (0.6-1.3); MAGNESIUM 1.9 mg/dL (1.8-2.4); PHOSPHORUS 2.2 mg/dL (2.5-4.9); POTASSIUM 3.1 mmol/L (3.5-5.1)
--- NOTE | 2018-03-26 06:55 | NUR ---
MS RN CLOSING NOTES PT IN BED, SLEEPING, BREATHING IS EVEN AND UNLABORED ON ROOM AIR. NO SIGNS OF ACUTE DISTRESS NOTED AT THIS TIME. AT THE BEDSIDE. L FA #18 G IV IS INFUSING D5 1/2 NS @ 75 ML/HR.NG TUBE IN PLACE JEVITY 1.2 AT 40 ML/HR AT R NARE. SAFETY PRECAUTIONS MAINTAINED,HOB ELEVATED. BED IS LOCKED AND IN LOWEST POSITION, SIDE RAILS UP X2, CALL LIGHT IS WITHIN REACH. WILL ENCORES TO NEXT SHIFT FOR MARLEN.
--- NOTE | 2018-03-26 07:00 | NUR ---
MSRN OPENING NOTE. PT RECEIVED ALERT TO SELF ONLY, NON VERBAL AND DROOLING. ED REPORTS PT IS MORE ALERT THAN YESTERDAY. PT TOLERATING ROOM AIR WITHOUT DISTRESS AND IS WITHOUT S/S OF PAIN OR DISCOMFORT. PT WITH NGT TUBE INTACT AND OPERATIONAL WITH JEVITY GTF PER RX. PT WITH IVC INTACT AND OPERATIONAL WITH D51/2NS PER RX. PT REPOSITIONED. PT FAMILY BRIEFED ON TODAY'S POC. PT BED IN LOWEST LOCKED POSITION WITH HANDRAILSX4, PT FAMILY WITHOUT CONCERN OR COMPLAINT AT THIS TIME.
[2018-03-26 08:00] VITALS: BP 130/86
[2018-03-26] MEDS: CARBIDOPA/LEVODOPA 25/100 MG 1 UDTAB PO SCH ×3 (08:29→17:59)
[2018-03-26] MEDS: HYDROGEL DRESSING 90 GM TUBE TP SCH (08:49)
[2018-03-26] MEDS: PANTOPRAZOLE 40 MG VIAL IV SCH (08:49)
[2018-03-26] MEDS: DOCUSATE SODIUM LIQ 100 MG/10 ML UDC GT SCH ×2 (08:49→17:59)
[2018-03-26] MEDS ORDERED: ESCITALOPRAM OXALATE (10 MG) 10 MG TABLET PO SCH ×2 (09:00→22:00)
[2018-03-26] MEDS ORDERED: FLUDROCORTISONE 0.1 MG TABLET PO SCH (09:00)
[2018-03-26] MEDS ORDERED: POTASSIUM CHLORIDE 20 MEQ POWDER PACKET NG ONE (09:30)
--- NOTE | 2018-03-26 10:00 | NUR ---
PT REFUSING CARBIDOPA/LEVADOPA R/T SWALLOW EVAL. LAUNDRETTE OWNER CC AWARE.
[2018-03-26] MEDS ORDERED: NEUTRA PHOS 1 POWD.PACKET GT ONE (13:30)
--- NOTE | 2018-03-26 13:52 | NUR ---
PT REFUSING CARBIDOPA/LEVADOPA R/T SWALLOW EVAL. HULL INSPECTOR CC AWARE.
--- NOTE | 2018-03-26 15:00 | NUR ---
MSRN. PT NGT UNSECURED, NGT AT 50CM, ADVANCED TO 55CM, STAT CXR REQUESTED.
[2018-03-26 15:53] VITALS: BP 124/80
--- NOTE | 2018-03-26 16:00 | NUR ---
BRANDON. NGT IN PLACE, DIET RE STARTED.
[2018-03-26] MEDS: ACETAMINOPHEN 325 MG TABLET PO PRN (17:59)
--- NOTE | 2018-03-26 18:29 | NUR ---
MSRN CLOSING NOTE. PT REMAINS ALERT TO SELF ONLY, NON VERBAL WITH TROUBLE CLEARING SECRETIONS. PT NPO. PT TOLERATING ROOM AIR WITHOUT DISTRESS AND IS WITHOUT S/S OF PAIN OR DISCOMFORT. PT WITH NGT TUBE INTACT AND OPERATIONAL, TAPED 55CM, WITH JEVITY GTF PER RX. PT WITH IVC INTACT AND OPERATIONAL WITH IVF PER RX. PT REPOSITIONED Q2HR. WOUND CARE PER RX. ALL DAY NURSE DUTIES ATTENDED TO. PT BED IN LOWEST LOCKED POSITION WITH HANDRAILSX4, PT FAMILY WITHOUT COMPLAINT AT THIS TIME. WILL ENDORSE TO NIGHT NURSE AT BEDSIDE FOR MARLEN.
--- NOTE | 2018-03-26 19:25 | NUR ---
MS HAMLET INITIAL NOTES RECEIVED REPORT FROM AM NURSE PIERRE WHILE DOING ROUNDS TO PT ROOM. PT IS WAKE TO SELF, WITH FEEDING JEVITY AT 40MLHR FRIDA NGT. NO ASPIRATION NOTED. HE ALSO HAVE IVF OF D51/2 NS AT 75ML/HR INFUSING ON HIS LEFT UPPER ARM. PATENT AND INTACT. NO REDNESS NOTED. BREATHING EVEN AND NON-LABORED, NOT IN ANY ACUTE DISTRESS NOTED. KEPT HIM ON HOB ELEVATED AT ALL TIMES. ASPIRATION PRECAUTION IMPLEMENTED AND OBSERVED. FAMILY AT THE BEDSIDE FOR SAFETY. WILL CONTINUE MONITORING. PLACE CALL LIGHT AT REACH.
[2018-03-26 20:00] VITALS: BP 92/63
[2018-03-26] MEDS: TAMSULOSIN 0.4 MG CAP.SR.24H PO SCH (22:06)
[2018-03-26] MEDS: DONEPEZIL 5 MG TABLET PO SCH (22:08)
--- NOTE | 2018-03-26 22:30 | NUR ---
recreational facilities motel manager notes routine meds given rommel ngt , positive ngt placement, no aspiration noted. sponge bath rendered as well as wound care as ordered. reposition him for comfort. will continue monitoring,.
--- NOTE | 2018-03-27 | NUR ---
ms ynes notes' pt sleeping comfortably in bed without any acute distress noted. ngt tolerated well no aspiration noted. family at the bedside. IVF infusing well, no redness noted. will continue monitoring.
[2018-03-27] MEDS: PIPERACILLIN /TAZOBACTAM 3.375 G in IV D5W 50 ML IV SCH ×4 (03:01→20:04)
--- NOTE | 2018-03-27 05:09 | NUR ---
ms ynes notes pt sleeping comfortably in bed no aspiration , breathing even and non-labored, not in any acute distress noted. will continue monitoring, place call light at reach.
[2018-03-27] MEDS: JEVITY 1.2 CAL 1,000 ML BOTTLE GT PRN (06:08)
[2018-03-27 07:10] LABS: BASOPHILS % (AUTO) 0.5 % (0.0-2.0); EOSINOPHILS % (AUTO) 0.6 % (0.0-6.0); HEMATOCRIT 35 % (39-51); HEMOGLOBIN 11.3 g/dL (13.5-17.5); LYMPHOCYTES # (AUTO) 0.4 /CMM (0.8-4.8); LYMPHOCYTES % (AUTO) 7.9 % (20.0-44.0); MEAN CORPUSCULAR HGB CONC 33 g/dl (31.0-36.0); MEAN CORPUSCULAR VOLUME 90 fL (80-96); MONOCYTES # (AUTO) 0.1 /CMM (0.1-1.30); MONOCYTES % (AUTO) 2.7 % (2.0-12.0); NEUTROPHILS # (AUTO) 4.5 /CMM (1.8-8.9); NEUTROPHILS % (AUTO) 88.3 % (43.0-81.0); PLATELET COUNT (AUTO) 154 /CMM (150-450); RDW COEFFICIENT OF VARIATION 15.2 (11.5-15.0); RED BLOOD CELL COUNT(AUTO) 3.85 MIL/uL (4.5-6.0); WHITE BLOOD COUNT (AUTO) 5.1 K/uL (4.3-11.0)
[2018-03-27 07:19] LABS: CALCIUM, SERUM 8.1 mg/dL (8.5-10.1); CREATININE 0.8 mg/dL (0.6-1.3); MAGNESIUM 1.5 mg/dL (1.8-2.4); PHOSPHORUS 2.5 mg/dL (2.5-4.9); POTASSIUM 3.2 mmol/L (3.5-5.1)
--- NOTE | 2018-03-27 07:29 | NUR ---
MS FRIT MIXER CLOSING NOTES PT RESTING COMFORTABLY IN BED WITHOUT ANY ACUTE DISTRESS NOTED. NGT TOLERATED WELL NO ASPIRATION NOTED. IVF STILL INFUSING ON HIS RIGHT AC PATENT AND INTACT. ALL DUE MEDS GIVEN AND ALL NEEDS MET. STABLE FRIDA THE NIGHT. ENDORSE TO AM NURSE FOR CONTINUITY OF CARE.
[2018-03-27 08:00] VITALS: BP 137/82
[2018-03-27] MEDS ORDERED: PHARMACY TO CHANGE PO MEDS TO GT/NG XX PRN (08:00)
--- NOTE | 2018-03-27 08:00 | NUR ---
m/s rat breeder: initial assessment received pt in bed with eyes close, appears lethargic/drowsy, but arousable. at bedside. pt on ng tube feeding at 40ml/hr, jakob. well. no residual obtained. hob elevated. will continue to monitor.
[2018-03-27] MEDS ORDERED: HYDROCODONE/APAP 5/325MG 1 EACH TABLET GT PRN (08:14)
[2018-03-27] MEDS ORDERED: MAG HYDROX/AL HYDROX/SIMETH 30 ML UDC GT PRN (08:15)
[2018-03-27] MEDS ORDERED: MAGNESIUM HYDROXIDE 30 ML UDC GT PRN (08:15)
[2018-03-27] MEDS: CARBIDOPA/LEVODOPA 25/100 MG 1 UDTAB GT SCH ×3 (09:00→17:00)
--- NOTE | 2018-03-27 09:00 | NUR ---
m/s media intern: notes request not to give his sinemet medication, wants pt to be awake when swallow follow up with him today as stated. will continue to monitor.
[2018-03-27] MEDS: DOCUSATE SODIUM LIQ 100 MG/10 ML UDC GT SCH ×2 (09:07→17:14)
[2018-03-27] MEDS: FLUDROCORTISONE 0.1 MG TABLET GT SCH (09:07)
[2018-03-27] MEDS: PANTOPRAZOLE 40 MG VIAL IV SCH (09:25)
[2018-03-27] MEDS: POTASSIUM CHLORIDE 20 MEQ POWDER PACKET GT SCH ×2 (09:38→10:40)
--- NOTE | 2018-03-27 10:30 | NUR ---
m/s open pit quarry supervisor: notes am care rendered by drier transfer car operator with the assistance of and prefers to held and do most of everything like sponge bath and wound treatment on his sacral. instructed to call for assistance. will continue to monitor.
[2018-03-27] MEDS: HYDROGEL DRESSING 90 GM TUBE TP SCH (10:48)
[2018-03-27] MEDS: Magnesium 1GM/D5W 100ML PREMIX 100 ML IV SCH ×2 (11:29→13:00)
--- NOTE | 2018-03-27 13:08 | NUR ---
m/s form setter steel pan forms: notes pt sleeping at this time and wants to skip his carbidopa and levodopa medication. will continue to monitor.
--- NOTE | 2018-03-27 15:00 | NUR ---
m/s audit clerk: notes pt remains sleepy, appears drowsy. still wants to hold of his antiparkinson's medication. hob elevated. pt tolerating his ng tube feeding with no residual obtained. will continue to monitor.
[2018-03-27 16:00] VITALS: BP 108/78
[2018-03-27] MEDS: IV D5/0.45 NACL 1,000 ML IV PRN (16:59)
--- NOTE | 2018-03-27 18:50 | NUR ---
m/s cash sales audit clerk: notes family remains at bedside. pt more awake now. no s/s of acute distress. needs attended. will continue to monitor.
--- NOTE | 2018-03-27 19:10 | NUR ---
MS RN NOTES Received patient on Monique's position with patent peripheral IV line MADDIE G#22 with d5 1/2NS infusing well @ 75ml/hr, no s/s of infiltration noted. With patent NGT on R nares with Jevity 1.2 infusing well @ 40ml/hr, as ordered, tolerated well. No N/V noted, abdomen soft and non tender. On room air, no SOB/respiratory distress noted. Family at bedside. Denies any discomfort at this time. Kept clean, dry and comfortable. Will continue to monitor.
[2018-03-27 20:00] VITALS: BP 145/85
[2018-03-27] MEDS: TAMSULOSIN 0.4 MG CAP.SR.24H GT SCH (21:48)
[2018-03-27] MEDS: DONEPEZIL 5 MG TABLET GT SCH (21:49)
[2018-03-27] MEDS: ESCITALOPRAM OXALATE (10 MG) 10 MG TABLET GT SCH (21:49)
[2018-03-28 01:03] VITALS: BP 145/85
[2018-03-28] MEDS: PIPERACILLIN /TAZOBACTAM 3.375 G in IV D5W 50 ML IV SCH ×4 (01:06→20:12)
--- NOTE | 2018-03-28 06:45 | NUR ---
MS RN CLOSING NOTES Patient asleep on bed on Monique's position with patent peripheral IV line MADDIE G#22 with D5 1/2Ns infusing well at 75ml/hr as ordered, no signs of infiltration noted. With patent NGT right nares with Jevity 1.2 infusing well @ 50ml/hr, gradually increased as tolerated with target set by RD 70ml/hr. No nausea/vomiting noted. Abdomen soft, nontender. On aspiration precaution, repositioned as ordered. Family remained at bedside. No new unusualities noted. Afebrile the whole shift. All needs attended. Endorsed to the next shift.
[2018-03-28 07:13] LABS: CALCIUM, SERUM 8.1 mg/dL (8.5-10.1); CREATININE 0.8 mg/dL (0.6-1.3); MAGNESIUM 1.9 mg/dL (1.8-2.4); POTASSIUM 3.4 mmol/L (3.5-5.1)
[2018-03-28 08:00] VITALS: BP 138/89
--- NOTE | 2018-03-28 08:00 | NUR ---
RECEIVED PATIENT , FAMILY AT BED SIDE , NO ACUTE DISTRESS , NGT FEEDING OF JEVITY 1.2 INPROGRESS , PLACEMENT CHECKED , NO RESIDUAL , PATIENT TOLERATING FEEDING , HOB UP 30% , NO SIGNS OF DISTRESS WILL CONTINUE WITH CARE
[2018-03-28] MEDS: CARBIDOPA/LEVODOPA 25/100 MG 1 UDTAB GT SCH ×3 (09:00→17:00)
[2018-03-28] MEDS: DOCUSATE SODIUM LIQ 100 MG/10 ML UDC GT SCH ×2 (09:24→17:14)
[2018-03-28] MEDS: PANTOPRAZOLE 40 MG VIAL IV SCH (09:24)
[2018-03-28] MEDS: FLUDROCORTISONE 0.1 MG TABLET GT SCH (09:25)
[2018-03-28] MEDS: HYDROGEL DRESSING 90 GM TUBE TP SCH (09:36)
[2018-03-28] MEDS: POTASSIUM CHLORIDE 20 MEQ TAB.PRT.SR PO SCH ×3 (11:00→13:36)
[2018-03-28] MEDS ORDERED: SCOPOLAMINE HBR 1 EA PATCH.TD72 TD SCH (13:00)
[2018-03-28] MEDS ORDERED: POTASSIUM CHLORIDE 20 MEQ POWDER PACKET GT SCH (14:00)
--- NOTE | 2018-03-28 14:04 | NUR ---
MS/RN Unable to administer medication Unable to administer 1100 dose of potassium as medication sent from pharmacy extended release and unable to crush to give via GT.
--- NOTE | 2018-03-28 15:00 | NUR ---
NGT FEEDING INCREASED TO 60CC/HR PT TOERATING FEEDING NO DISTRESS , REPOSITION FOR COMFORT HOB UP 30% SRX2 UP FAMLY AT BED SITE
[2018-03-28 16:00] VITALS: BP 130/89
--- NOTE | 2018-03-28 16:43 | NUR ---
POTASSIUM 20MEQ AT 1130 AND 1330 NOT GIVEN PHARMACY NOTIFIED
--- NOTE | 2018-03-28 17:15 | NUR ---
SINAMET NOT GIVEN REFUSED BY PATIENT
--- NOTE | 2018-03-28 19:10 | NUR ---
RN INITIAL NOTES Received patient awake on Monique's position with patent peripheral IV line Buck G#22 with D5 1/2NS infusing well @ 75ml/hr as ordered, no signs of infiltration noted. With patent R nares NGT with feeding Jevity 1.2 tolerating well @ 60ml/hr. Abdomen soft and non-tender. No n/v noted. No s/s of discomfort noted at this time. Family at bedside. Kept HOB elevated, on aspiration precaution. Kept bed low and locked. Will monitor accordingly.
[2018-03-28 20:00] VITALS: BP 156/91
[2018-03-28] MEDS: QUETIAPINE FUMARATE 25 MG TABLET PO SCH (22:00)
[2018-03-28] MEDS: TAMSULOSIN 0.4 MG CAP.SR.24H GT SCH (22:00)
[2018-03-28] MEDS: DONEPEZIL 5 MG TABLET GT SCH (22:00)
[2018-03-28] MEDS: ESCITALOPRAM OXALATE (10 MG) 10 MG TABLET GT SCH (22:00)
--- NOTE | 2018-03-29 | NUR ---
MS RN NOTES Increased NGT feeding to 65ml/hr. Monitored accordingly for complications. Instructed family to report any unsualities - verbalized understanding.
[2018-03-29] MEDS: IV D5/0.45 NACL 1,000 ML IV PRN ×2 (01:06→17:12)
[2018-03-29] MEDS: PIPERACILLIN /TAZOBACTAM 3.375 G in IV D5W 50 ML IV SCH ×4 (01:07→19:38)
[2018-03-29 02:56] VITALS: BP 156/91
--- NOTE | 2018-03-29 03:37 | NUR ---
MS RN NOTES Patient noted with scanty drooling, with occasional coughing. No SOB/respiratory distress noted. Checked by RT on duty for necessity of deep suctioning. Per RT patient's lung cid sounds clear and does not need deep suctioning at this time.
--- NOTE | 2018-03-29 04:00 | NUR ---
MS RN NOTES Patient tolerating NGT feeding well, no s/s of feeding complication noted. Increased to maximum recommended dose 70ml/hr. Reinforced to family member and reminded to report symptoms of feeding complications immediately; verbalized understanding. Monitored accordingly.
[2018-03-29 06:33] LABS: BASOPHILS # (AUTO) 0.1 /CMM (0.0-0.2); HEMATOCRIT 33 % (39-51); HEMOGLOBIN 10.8 g/dL (13.5-17.5); LYMPHOCYTES # (AUTO) 0.8 /CMM (0.8-4.8); MEAN CORPUSCULAR HGB CONC 33 g/dl (31.0-36.0); MEAN CORPUSCULAR VOLUME 90 fL (80-96); MONOCYTES # (AUTO) 0.2 /CMM (0.1-1.30); MONOCYTES % (AUTO) 2.9 % (2.0-12.0); NEUTROPHILS # (AUTO) 4.6 /CMM (1.8-8.9); NEUTROPHILS % (AUTO) 80.1 % (43.0-81.0); PLATELET COUNT (AUTO) 250 /CMM (150-450); RDW COEFFICIENT OF VARIATION 14.8 (11.5-15.0); RED BLOOD CELL COUNT(AUTO) 3.67 MIL/uL (4.5-6.0); WHITE BLOOD COUNT (AUTO) 5.8 K/uL (4.3-11.0)
[2018-03-29 06:49] LABS: CALCIUM, SERUM 8.4 mg/dL (8.5-10.1); CREATININE 0.9 mg/dL (0.6-1.3); MAGNESIUM 1.9 mg/dL (1.8-2.4); PHOSPHORUS 3.5 mg/dL (2.5-4.9); POTASSIUM 3.4 mmol/L (3.5-5.1)
--- NOTE | 2018-03-29 07:35 | NUR ---
RN OPENING NOTES RECEIVED PT. PT IS STABLE AND RESTING IN BED. NO S/S OF RESP DISTRESS OR SOB. FAMILY AT BEDSIDE. NGT IN PLACE, RESIDUAL <15 ML, INFUSING JEVITY 1.2 AT 70 ML/HR, WILL CONTINUE TO MONITOR FOR PT'S ABILITY TO TOLERATE. IV ACCESS LOCATED ON MADDIE 22G INFUSING D5 1/2 NS AT 75 ML/HR. SAFETY MEASURES IN PLACE, CALL LIGHT WITHIN REACH. WILL CONTINUE TO MONITOR.
[2018-03-29 08:00] VITALS: BP 114/71
[2018-03-29] MEDS: DOCUSATE SODIUM LIQ 100 MG/10 ML UDC GT SCH ×2 (08:13→16:03)
[2018-03-29] MEDS: PANTOPRAZOLE 40 MG VIAL IV SCH (08:13)
[2018-03-29] MEDS: CARBIDOPA/LEVODOPA 25/100 MG 1 UDTAB GT SCH ×3 (08:13→16:02)
[2018-03-29] MEDS: FLUDROCORTISONE 0.1 MG TABLET GT SCH (08:13)
[2018-03-29] MEDS: HYDROGEL DRESSING 90 GM TUBE TP SCH (08:23)
[2018-03-29] MEDS ORDERED: POTASSIUM CHLORIDE 20 MEQ POWDER PACKET GT SCH (11:00)
[2018-03-29 16:00] VITALS: BP 107/68
[2018-03-29] MEDS: JEVITY 1.2 CAL 1,000 ML BOTTLE GT PRN (17:10)
--- NOTE | 2018-03-29 19:00 | NUR ---
MS ARCINIEGA INITIAL NOTES Received patient on Monique's position on bed with patent peripheral IV line RAC G#20 wtih D5NS @80cc/hr, no s/s of infiltration noted. Appeared cheerful this time, claimed he felt sometimes mild pain but very tolerable. No complaints at this time. Able to perform ADLs independently, ambulates in steady gait. Will monitor accordingly. Addendum: 03/29/18 at 2031 by KESHA MANZANO RN Wrong patient.
--- NOTE | 2018-03-29 19:10 | NUR ---
MS RN INITIAL NOTES Received patient awake on Monique's position with patent peripheral IV line MADDIE Luuqe#22 D5 1/2NS @75ml/hr. With patent NGT R nares with Jevity 1.2 @ 40ml/hr. Patient able to tolerate minimal puree food and liquid. A/O X1, family remains at bedside always to facilitate patient's concerns. No complaints at this time. Will continue to monitor accordingly.
--- NOTE | 2018-03-29 19:17 | NUR ---
RN CLOSING NOTE PT IN BED RESTING. FAMILY BEDSIDE. NO S/S OF RESP DISTRESS OR SOB. NO C/O PAIN. NGT IN PLACE RUNNING [employer] 1.2 FEEDING. PT ABLE TO EAT SOFT PUREED FOODS, WILL NOTIFY MD. SAFETY MEASURES IN PLACE, CALL LIGHT WITHIN REACH. WILL ENDORSE TO BOTTOM LOADER FOR MARLEN.
[2018-03-29 20:00] VITALS: BP 131/88
--- NOTE | 2018-03-29 20:30 | NUR ---
MS ARCINIEGA NOTES Due meds given as ordered. Patient took PO meds with water, able to swallow whole pill with water without difficulty noted. Addendum: 03/29/18 at 2031 by KESHA MANZANO RN Wrong entry.
[2018-03-29 20:59] VITALS: BP 131/88
--- NOTE | 2018-03-29 21:27 | NUR ---
MS RN NOTES TRANSFER OF CARE ENDORSED PATIENT TO SUCCEEDING RN. PATIENT IN STABLE CONDITION. NO S/S OF DISCOMFORT AT THIS TIME. AT BEDSIDE.
--- NOTE | 2018-03-29 21:30 | NUR ---
MS RN NOTES RECEIVED ON BED,MAMMOGRAPHER AT BEDSIDE TRYING TO CHANGE PATIENT DIAPER.NGT FEEDING ON HOLD.FAMILY MEMBERS AT BEDSIDE.
[2018-03-29] MEDS: DONEPEZIL 5 MG TABLET GT SCH (22:01)
[2018-03-29] MEDS: ESCITALOPRAM OXALATE (10 MG) 10 MG TABLET GT SCH (22:01)
[2018-03-29] MEDS: TAMSULOSIN 0.4 MG CAP.SR.24H GT SCH (22:01)
[2018-03-29] MEDS: QUETIAPINE FUMARATE 25 MG TABLET PO SCH (22:02)
--- NOTE | 2018-03-29 22:15 | NUR ---
MS RN NOTES NGT PLACEMENT POSITIVE,DUE MEDS GIVEN VIA NGT.HOB ELEVATED FOR ASPIRATION PRECAUTION.
--- NOTE | 2018-03-29 22:40 | NUR ---
MS RN NOTES CALLED,CLAIMED PATIENT CHOKING.HOB ELEVATED,NGT FEEDING HELD FOR AWHILE.FREQUENT SUCTIONING DONE.RT AT BEDSIDE.
--- NOTE | 2018-03-29 23:07 | NUR ---
MS RN NOTES CALM THIS TIME,WILL CONTINUE TO MONITOR STATUS.
[2018-03-30] MEDS: PIPERACILLIN /TAZOBACTAM 3.375 G in IV D5W 50 ML IV SCH (01:34)
--- NOTE | 2018-03-30 06:31 | NUR ---
MS RN NOTES CALM AT THIS TIME.MORNING CARE RENDERED TOLERATED WELL.NO N/V/D NOTED.KEPT HOB ELEVATED FOR ASPIRATION PRECAUTION.FOR SPEECH/SWALLOW EVAL PER REQUEST.D/C PLAN TO HOME WITH HOME HEALTH V/S [facility].WILL ENDORSE TO DAY NURSE FOR MARLEN.
[2018-03-30 06:53] LABS: CALCIUM, SERUM 8.6 mg/dL (8.5-10.1); CREATININE 0.9 mg/dL (0.6-1.3); POTASSIUM 3.9 mmol/L (3.5-5.1)
--- NOTE | 2018-03-30 07:55 | NUR ---
RN OPENING NOTES RECEIVED PT. PT IS STABLE AND RESTING IN BED. NO S/S OF RESP DISTRESS OR SOB. FAMILY AT BEDSIDE. NGT IN PLACE, RESIDUAL <10 ML, INFUSING JEVITY 1.2 AT 40 ML/HR, WILL CONTINUE TO MONITOR FOR PT'S ABILITY TO TOLERATE. PER DISCUSSION WITH FAMILY, PT EATING PUREED FOODS, AWAITING SWALLOW EVAL WITH ST. IV ACCESS LOCATED ON MADDIE 22G INFUSING D5 1/2 NS AT 75 ML/HR. SAFETY MEASURES IN PLACE, CALL LIGHT WITHIN REACH. WILL CONTINUE TO MONITOR.
[2018-03-30 08:10] VITALS: BP 130/67
[2018-03-30] MEDS: FLUDROCORTISONE 0.1 MG TABLET GT SCH (08:21)
[2018-03-30] MEDS: PANTOPRAZOLE 40 MG VIAL IV SCH (08:21)
[2018-03-30] MEDS: DOCUSATE SODIUM LIQ 100 MG/10 ML UDC GT SCH ×2 (08:22→17:13)
[2018-03-30] MEDS: CARBIDOPA/LEVODOPA 25/100 MG 1 UDTAB GT SCH ×3 (08:22→17:13)
[2018-03-30] MEDS: IV D5/0.45 NACL 1,000 ML IV PRN (08:22)
[2018-03-30] MEDS: HYDROGEL DRESSING 90 GM TUBE TP PRN (09:04)
[2018-03-30] MEDS: HYDROGEL DRESSING 90 GM TUBE TP SCH (09:04)
[2018-03-30 09:28] VITALS: BP 130/67
[2018-03-30 16:00] VITALS: BP 130/79
[2018-03-30] MEDS: CLONIDINE HCL 0.1MG/24H PTWK 1 EA PATCH TD SCH (18:12)
--- NOTE | 2018-03-30 18:45 | NUR ---
RN CLOSING NOTE PT IN BED RESTING. NO S/S OF RESP DISTRESS/SOB. PT DOES NOT APPEAR TO BE IN PAIN. NGT PULLED OUT IN AFTERNOON. GI SPECIALIST CONSULTED WITH FAMILY, AGREED FOR PEG TUBE PLACEMENT ON 03/31. CONSENT FORMS SIGNED AND PLACED IN CHART. SAFETY MEASURES IN PLACE. CALL LIGHT IN REACH. WILL ENDORSE TO CALENDER TENDER FOR MARLEN.
--- NOTE | 2018-03-30 19:40 | NUR ---
MS RN NOTE: PATIENT RESTING IN BED, NO ACUTE DISTRESS NOTED, FAMILY AT BEDSIDE. BREATHING EVEN AND UNLABORED, NO SOB NOTED. IV TO MADDIE IN PLACE, INFUSING D5 1/2NS AT 75 ML/HR. INFORMED FAMILY THAT HE WILL CONTINUE TO BE NPO AFTER MIDNIGHT FOR G-TUBE PLACEMENT. BED LOCKED AND IN LOWEST POSITION, CALL LIGHT IN REACH. WILL CONTINUE TO MONITOR.
[2018-03-30 20:00] VITALS: BP 150/82
[2018-03-30] MEDS: ESCITALOPRAM OXALATE (10 MG) 10 MG TABLET GT SCH (21:06)
[2018-03-30] MEDS: DONEPEZIL 5 MG TABLET GT SCH (21:06)
[2018-03-30] MEDS: QUETIAPINE FUMARATE 25 MG TABLET PO SCH (21:06)
[2018-03-30] MEDS: TAMSULOSIN 0.4 MG CAP.SR.24H GT SCH (21:06)
--- NOTE | 2018-03-30 21:07 | NUR ---
MS RN NOTE: PATIENT NIGHT MEDICATIONS NON-ADMINISTERED, PATIENT DOES NOT HAVE NG TUBE ANYMORE AND FAILED SWALLOW MD GRACE AWARE. PATIENT TO HAVE G-TUBE PLACED IN MORNING. INFORMED FAMILY THAT PATIENT IS SCHEDULED FOR SURGERY AT 10:00AM. WILL CONTINUE TO MONITOR.
[2018-03-31] MEDS: IV D5/0.45 NACL 1,000 ML IV PRN ×2 (00:30→17:43)
[2018-03-31] MEDS ORDERED: LORAZEPAM INJ 2 MG/ML VIAL IV PRN (00:30)
--- NOTE | 2018-03-31 00:45 | NUR ---
MS RN NOTE: PATIENT NOTED PATIENT AGITATED AND REQUESTING MEDICATE TO HELP RELAX PATIENT. CALLED CAPACITY PLANNING ENGINEER MD, SPOKE TO DR. ARROYO AND RECEIVED ORDER FOR ATIVAN 0.5MG IV EVERY 8 HOURS NEEDED. ORDER NOTED AND CARRIED OUT. ATIVAN 0.5MG IV GIVEN PER MD ORDER. WILL CONTINUE TO MONITOR.
--- NOTE | 2018-03-31 06:05 | NUR ---
MS RN NOTE: PATIENT RESTING IN BED, NO ACUTE DISTRESS NOTED, FAMILY AT BEDSIDE. BREATHING EVEN AND UNLABORED, NO SOB NOTED. IV TO MADDIE IN PLACE, INFUSING D5 1/2NS AT 75 ML/HR. PATIENT SCHEDULED FOR G-TUBE PLACEMENT THIS MORNING AT 1000. BED LOCKED AND IN LOWEST POSITION, CALL LIGHT IN REACH. WILL ENDORSE TO DAY NURSE TO CONTINUE WITH PLAN OF CARE.
[2018-03-31 06:34] LABS: CALCIUM, SERUM 8.8 mg/dL (8.5-10.1); CREATININE 0.7 mg/dL (0.6-1.3); MAGNESIUM 1.8 mg/dL (1.8-2.4); PHOSPHORUS 3.5 mg/dL (2.5-4.9)
[2018-03-31 06:47] LABS: INR 1.05 (0.87-1.13)
[2018-03-31 07:01] LABS: BASOPHILS % (AUTO) 0.2 % (0.0-2.0); EOSINOPHILS % (AUTO) 2.1 % (0.0-6.0); HEMATOCRIT 34 % (39-51); HEMOGLOBIN 11.5 g/dL (13.5-17.5); LYMPHOCYTES # (AUTO) 1.2 /CMM (0.8-4.8); LYMPHOCYTES % (AUTO) 13.1 % (20.0-44.0); MEAN CORPUSCULAR HGB CONC 34 g/dl (31.0-36.0); MEAN CORPUSCULAR VOLUME 87 fL (80-96); MONOCYTES # (AUTO) 0.3 /CMM (0.1-1.30); MONOCYTES % (AUTO) 2.8 % (2.0-12.0); NEUTROPHILS # (AUTO) 7.5 /CMM (1.8-8.9); NEUTROPHILS % (AUTO) 81.8 % (43.0-81.0); PLATELET COUNT (AUTO) 312 /CMM (150-450); RDW COEFFICIENT OF VARIATION 13.8 (11.5-15.0); RED BLOOD CELL COUNT(AUTO) 3.84 MIL/uL (4.5-6.0); WHITE BLOOD COUNT (AUTO) 9.2 K/uL (4.3-11.0)
--- NOTE | 2018-03-31 07:40 | NUR ---
MS RN RECEIVED ON BED, SLEEPING, NON VERBAL PATIENT, AT BEDSIDE, NO DISTRESS NOTED, WILL HAVE AN EGD W/ PEG PLACEMENT TODAY, WILL MONITOR PATIENT'S CONDITION.
[2018-03-31 08:00] VITALS: BP 99/66
--- NOTE | 2018-03-31 09:00 | NUR ---
MS SUZE NPO FOR THE PROCEDURE AT THIS TIME, WILL HELD MEDS.
[2018-03-31] MEDS ORDERED: FENTANYL PF 100MCG/2ML AMPUL ONE (09:15)
[2018-03-31] MEDS ORDERED: MIDAZOLAM HCL 2 MG/2ML VIAL ONE (09:16)
--- NOTE | 2018-03-31 09:20 | NUR ---
MS RN WENT DOWN FOR THE PROCEDURE.
[2018-03-31] MEDS: CARBIDOPA/LEVODOPA 25/100 MG 1 UDTAB GT SCH ×3 (13:00→17:39)
[2018-03-31] MEDS: DOCUSATE SODIUM LIQ 100 MG/10 ML UDC GT SCH ×2 (14:24→17:39)
[2018-03-31] MEDS: FLUDROCORTISONE 0.1 MG TABLET GT SCH (14:24)
[2018-03-31] MEDS: PANTOPRAZOLE 40 MG VIAL IV SCH (14:24)
[2018-03-31] MEDS: HYDROGEL DRESSING 90 GM TUBE TP SCH (14:27)
[2018-03-31 16:00] VITALS: BP 115/77
--- NOTE | 2018-03-31 19:18 | NUR ---
ms rn on bed, no distress noted.
--- NOTE | 2018-03-31 19:30 | NUR ---
MS RN NOTE: PATIENT RESTING IN BED, NO ACUTE DISTRESS NOTED, FAMILY AT BEDSIDE. BREATHING EVEN AND UNLABORED, NO SOB NOTED. IV TO MADDIE IN PLACE, INFUSING D5 1/2NS AT 75 ML/HR. G-TUBE IN PLACE, NO FEEDING YET TILL TOMORROW. BED LOCKED AND IN LOWEST POSITION, CALL LIGHT IN REACH. WILL CONTINUE TO MONITOR. Addendum: 04/01/18 at 0149 by JOHNNY ROACH RN CORRECTION: IV TO LFA IN PLACE, INFUSING D5 1/2NS AT 75 ML/HR. IV TO MADDIE IN PLACE.
[2018-03-31 20:00] VITALS: BP 137/86
[2018-03-31] MEDS: ESCITALOPRAM OXALATE (10 MG) 10 MG TABLET GT SCH (22:11)
[2018-03-31] MEDS: DONEPEZIL 5 MG TABLET GT SCH (22:11)
[2018-03-31] MEDS: QUETIAPINE FUMARATE 25 MG TABLET PO SCH (22:11)
[2018-03-31] MEDS: TAMSULOSIN 0.4 MG CAP.SR.24H GT SCH (22:11)
--- NOTE | 2018-03-31 22:30 | NUR ---
MS RN NOTE: PATIENT WITH IV MADDIE NOTED WITH REDNESS, IV REMOVED, COVERED WITH GAUZE, PRESSURE APPLIED AND SECURED WITH TAPE. PATIENT STILL WITH IV SITE TO LFA IN PLACE. WILL CONTINUE TO MONITOR.
--- NOTE | 2018-04-01 06:10 | NUR ---
MS RN NOTE: PATIENT RESTING IN BED, NO ACUTE DISTRESS NOTED, FAMILY AT BEDSIDE. BREATHING EVEN AND UNLABORED, NO SOB NOTED. IV TO LFA IN PLACE, INFUSING D5 1/2NS AT 75 ML/HR. G-TUBE IN PLACE WITH ABDOMINAL BINDER IN PLACE. BED LOCKED AND IN LOWEST POSITION, CALL LIGHT IN REACH. WILL ENDORSE TO DAY NURSE TO CONTINUE WITH PLAN OF CARE.
[2018-04-01 08:00] VITALS: BP 170/92
[2018-04-01] MEDS: IV D5/0.45 NACL 1,000 ML IV PRN ×2 (08:46→21:57)
[2018-04-01] MEDS: JEVITY 1.2 CAL 1,000 ML BOTTLE GT PRN (09:19)
[2018-04-01] MEDS: DOCUSATE SODIUM LIQ 100 MG/10 ML UDC GT SCH ×2 (10:23→19:01)
[2018-04-01] MEDS: CARBIDOPA/LEVODOPA 25/100 MG 1 UDTAB GT SCH ×3 (10:23→19:01)
[2018-04-01] MEDS: PANTOPRAZOLE 40 MG VIAL IV SCH (10:23)
[2018-04-01] MEDS: FLUDROCORTISONE 0.1 MG TABLET GT SCH (10:25)
[2018-04-01] MEDS: ACETAMINOPHEN 650 MG/20.3 ML UDC GT PRN ×2 (12:37→19:01)
[2018-04-01 16:00] VITALS: BP 144/92
[2018-04-01] MEDS: HYDROGEL DRESSING 90 GM TUBE TP PRN (16:20)
[2018-04-01] MEDS: HYDROGEL DRESSING 90 GM TUBE TP SCH (17:28)
--- NOTE | 2018-04-01 18:00 | NUR ---
FAMILY PRESENT ALL DAY.MEDICATED X 2 WITH TYLENOL.DEBRIDEMENT OF SACRAL WD. BY BUSHWALKING GUIDE. CONSENT SIGNED.
--- NOTE | 2018-04-01 19:00 | NUR ---
MS RN OPENING NOTE Patient was seen sleeping in bed, opened eyes to light touch, oriented x1 only. Patient with history of dementia and Parkinson's disease; BUE are contracted. Patient is breathing on 3L O2 NC with no SOB, and no signs of acute distress. D5 1/2 NS is running at 75ml/hr through the left FA with no signs of leaking or infiltration. Jevity tube feeding is running at 20ml/hr. Bed is low/locked, two side rails up, and call cary within reach. and son are at the bedside. Will continue to monitor.
[2018-04-01 20:00] VITALS: BP 115/90
[2018-04-01 20:45] VITALS: BP 115/90
--- NOTE | 2018-04-01 21:00 | NUR ---
MS RN NOTE - Jevity Tube Feed, Rate Increase Per MD orders, Jevity tube feeding is to be increased by an increment of 10ml/hr each shift (to a max of 70ml/hr). Tube feeding has been increased from 20ml/hr now to 30ml/hr.
--- NOTE | 2018-04-01 22:00 | NUR ---
MS RN NOTE - Wound Care Wound care provided to sacral wound according to MD orders.
[2018-04-01] MEDS: QUETIAPINE FUMARATE 25 MG TABLET PO SCH (22:51)
[2018-04-01] MEDS: TAMSULOSIN 0.4 MG CAP.SR.24H GT SCH (22:51)
[2018-04-01] MEDS: DONEPEZIL 5 MG TABLET GT SCH (22:52)
[2018-04-01] MEDS: ESCITALOPRAM OXALATE (10 MG) 10 MG TABLET GT SCH (22:52)
--- NOTE | 2018-04-02 07:02 | NUR ---
MS RN CLOSING NOTE Patient was seen sleeping in bed, opens eyes to light touch, oriented x1 only. Patient with history of dementia and Parkinson's disease; BUE are contracted. Patient is breathing on 2L O2 NC with no SOB, and no signs of acute distress. D5 1/2 NS is running at 75ml/hr through the left FA with no signs of leaking or infiltration. Jevity tube feeding is running at 30ml/hr. Bed is low/locked, two side rails up, and call cary within reach. Son is at the bedside. No complications over night. Patient care endorsed to day shift nurse.
--- NOTE | 2018-04-02 07:43 | NUR ---
MS RN OPENING NOTES RECEIVED PT WITH HOB ELEVATED, NONVERBAL. PT APPEARS TO BE LETHARGIC WITH SPONTANEOUS EYE OPENING WHEN NAME IS CALLED. RESPIRATIONS ARE EVEN AND UNLABORED, NOT IN ANY ACUTE DISTRESS NOTED. NO FACIAL GRIMACING OR MOANING NOTED. IV SITE INTACT, NO INFILTRATION NOTED. DRESSING KEPT CLEAN AND DRY. GT PLACEMENT INTACT, CORRECT PLACEMENT UPON AUSCULTATION. NO RESIDUAL NOTED AT THIS TIME. SON AT BEDSIDE. EDUCATED SON TO KEEP HOB ELEVATED TO PREVENT ASPIRATION, WILL REPOSITION PT Q2H TO PREVENT FURTHER SKIN INJURY. SAFETY MEASURES ARE IN PLACE. BED IS IN ITS LOWEST AND LOCKED POSITION. CALL LIGHT IS LEFT WITHIN REACH. WILL ENDORSE TO NEXT SHIFT FOR CONTINUITY OF CARE.
[2018-04-02 08:00] VITALS: BP 139/88
[2018-04-02] MEDS: CARBIDOPA/LEVODOPA 25/100 MG 1 UDTAB GT SCH ×3 (08:31→16:54)
[2018-04-02] MEDS: DOCUSATE SODIUM LIQ 100 MG/10 ML UDC GT SCH ×2 (08:31→16:54)
[2018-04-02] MEDS: PANTOPRAZOLE 40 MG VIAL IV SCH (08:31)
[2018-04-02] MEDS: FLUDROCORTISONE 0.1 MG TABLET GT SCH (08:31)
[2018-04-02] MEDS: HYDROGEL DRESSING 90 GM TUBE TP SCH (09:28)
[2018-04-02] MEDS ORDERED: LACT-209 GT (10:58)
[2018-04-02] MEDS: IV D5/0.45 NACL 1,000 ML IV PRN (13:09)
--- NOTE | 2018-04-02 18:33 | NUR ---
CONTACT LENS BLOCKER AND CUTTER NOTE PT DISCHARGED TO HOME VIA GURNEY ACCOMPANIED BY IN STABLE CONDITION. PT IS NONVERBAL WITH SPONTANEOUS EYE OPENING. NO FACIAL GRIMACING OR MOANING NOTE. PUPILS ARE REACTIVE TO LIGHT. NO SOB, N/V NOTED. ABDOMEN IS SOFT AND NONDISTENDED. BOWEL SOUNDS ARE PRESENT UPON AUSCULTATION. EDUCATED AT BEDSIDE ON HOW TO ADMINISTER MEDICATIONS AND HOW TO PROPERLY ADMINISTER G-TUBE FEEDING ORDERED. NURSE ALSO CAME IN TO EDUCATE ON THEIR MACHINE TO BE USED AT HOME. VERBALIZED UNDERSTANDING. EXPLAINED DISCHARGE PAPERWORK TO WITH VERBAL AND WRITTEN UNDERSTANDING. PHOTOS TAKEN TO SACRAL AND BACK. WOUND DRESSING DONE. IV ACCESS REMOVED, APPLIED PRESSURE AND TOLERATED WELL. ID BAND REMOVED. ALL BELONGINGS SENT WITH . PT DISCHARGED TO HOME P/U BY AMBULANCE IN STABLE CONDITION.
== END 2018-04-02 19:00 | disposition home health service (06) | DRG 40 ==
LOC: ER 22:00 → MED 03-23 01:31
PROVIDERS: ADMIT Registered Nurse; ATTEND Registered Nurse
PROC: 0DH63UZ Insertion of Feeding Device into Stomach, Percutaneous Approach (ICD-10-PCS; 2018-03-31 10:00)
PROC: 0JB70ZZ Excision of Back Subcutaneous Tissue and Fascia, Open Approach (ICD-10-PCS; principal; 2018-04-01)
DX: G20 Parkinson's disease (principal); G93.40 Encephalopathy, unspecified; L89.153 Pressure ulcer of sacral region, stage 3; E43 Unspecified severe protein-calorie malnutrition; E44.1 Mild protein-calorie malnutrition; E87.1 Hypo-osmolality and hyponatremia; N39.0 Urinary tract infection, site not specified; R62.7 Adult failure to thrive; E86.0 Dehydration; F02.80 Dementia in other diseases classified elsewhere, unspecified severity, without behavioral disturbance, psychotic disturbance, mood disturbance, and anxiety; G30.9 Alzheimer's disease, unspecified; R13.10 Dysphagia, unspecified; Z98.890 Other specified postprocedural states; Z79.899 Other long term (current) drug therapy; R50.9 Fever, unspecified; F32.9 Major depressive disorder, single episode, unspecified; N40.0 Benign prostatic hyperplasia without lower urinary tract symptoms; Z96.642 Presence of left artificial hip joint; Z79.01 Long term (current) use of anticoagulants; D64.9 Anemia, unspecified
CPT/HCPCS: 31720; 36415; 43246; 71045-TC; 80048-TC; 80061-TC; 80076-TC; 81000-TC; 83540-TC; 83690-TC; 83735-TC; 84100-TC; 84443-TC; 85025-TC; 85730-TC; 87040-TC; 87081-TC; 87086-TC; 92526; 92611-TC; A4606; A6248; A6402; A6403; C9113; J2060; J2250; J2543; J2704; J3010; J3475; J3480; J3490; J7030; J7042; J7060; Z7610